=== PATIENT | female | born 1935 | race African-American/Black ===

== ENCOUNTER 2016-06-29 20:42 | Inpatient (IN) | payer MEDICARE ==
[~2016-06-29] VITALS: Ht 160 cm; Wt 83.2 kg
[~2016-06-29 20:42] MED LIST: ACET500T68 PO; ASCO10002 PO; ASPI81TA2 PO; FURO20TA3 PO; GARL1000 PO; GLUC-117 PO; HYDR-2666 PO; LEVO100T5 PO; LOSA50TA6 PO; MAGN400T3 PO; MULT-658 PO; MV-M1TAB7 PO; OMEG300C PO; POTA20TA12 PO; PRAV40TA2 PO; RIVA20TA2 PO; SPIR25TA3 PO; TRAM50TA PO
[2016-06-29 21:45] LABS: BASO % 0 % (0-3); EOS % 1 % (0-3); HEMATOCRIT 45.2 % (36.0-47.0); HEMOGLOBIN 14.6 g/dL (12.0-15.5); LYMPH # 0.8 x10^3/uL (1.0-4.8); LYMPH % 9 % (24-48); MEAN CORPUSCULAR HEMOGLOBIN 29 pg (25-35); MEAN CORPUSCULAR HGB CONC 32 g/dL (31-37); MEAN CORPUSCULAR VOLUME 88 fL (79-100); MONO % 5 % (0-9); NEUT % 85 % (31-73); PLATELET COUNT 160 x10^3/uL (140-400); RED BLOOD COUNT 5.12 x10^6/uL (3.50-5.40); RED CELL DISTRIBUTION WIDTH 14.3 % (11.5-14.5); WHITE BLOOD COUNT 9.2 x10^3/uL (4.0-11.0)
[2016-06-29] MEDS ORDERED: ONDANSETRON PF 4 MG/2 ML VIAL. IV ONE (21:45)
[2016-06-29] MEDS ORDERED: LABETALOL 20 MG/4 ML DISP.SYRIN. IVP ONE (21:45)
[2016-06-29 21:54] LABS: CALCIUM 9.3 mg/dL (8.5-10.1); CREATININE 0.6 mg/dL (0.6-1.0); GFR 116.1; POTASSIUM 3.9 mmol/L (3.5-5.1)
[2016-06-29 22:00] LABS: ALBUMIN 3.9 g/dL (3.4-5.0); TOTAL PROTEIN 7.8 g/dL (6.4-8.2)
--- NOTE | 2016-06-29 22:18 | RAD ---
PROCEDURE CT head without contrast. HISTORY Headache and hypertension. Dizziness. TECHNIQUE Noncontrast CT head was obtained. One or more of the following individualized dose reduction techniques were utilized for this exam: 1. Automated exposure control. 2. Adjustment of the mA and/or kV according to patient's size. 3. Use of iterative reconstruction technique. COMPARISON None. FINDINGS There is prominence of the ventricles and sulci. There is either a chronic small right frontal cortical infarct or volume averaging of a sulcus. There is no CT evidence of an acute infarct. Areas of decreased attenuation in the supratentorial white matter are nonspecific but most suggestive of mild small vessel ischemic disease. There is no intracranial hemorrhage or extra-axial fluid collection. There is hyperostosis frontalis. Paranasal sinuses and mastoid air cells are clear. IMPRESSION - Brain parenchymal volume loss and probable small vessel ischemic disease. - No CT evidence of an acute infarct. Electronically signed by: Gilbert Umaña MD (Jun 29, 2016 22:17:29)
--- NOTE | 2016-06-29 22:28 | PHYS DOC ---
Past Medical History Past Medical History: Arthritis, Arrhythmia, Diverticulitis, High Cholesterol, Hypertension, Hypothyroid Past Surgical History: Colectomy, Pacemaker, Other Additional Past Surgical Histo: cardiac cath with stents, cardioversion, colonoscopy, cardiac ablation Alcohol Use: Rarely Drug Use: None Adult General Chief Complaint Chief Complaint: HYPERTENSION HPI HPI Patient is a 80 year old female who presents with elevated blood pressure, dizziness. Patient reports starting this afternoon she had gradual onset of slight headache, this is accompanied by dizziness, which she describes as feeling foggy or lightheaded. No vertigo. She also reports some nausea. The symptoms slightly worse when she is standing up. In addition, she says that over the past 1-2 weeks she has had some intermittent problems with her speech ( trouble with speech flow in particular). Lastly, patient has complaint of intermittent labored breathing. Patient checked her blood pressure home and was elevated, 180/112. She has not taken anything for symptoms. She has been compliant with her blood pressure medications as She had not taken them tonight that she had not eaten. Review of Systems Review of Systems Constitutional: Denies fever or chills Eyes: Denies change in visual acuity or eye pain HENT: Denies nasal congestion or sore throat Respiratory: Denies cough or shortness of breath Cardiovascular: Denies chest pain GI: Nausea. Denies abdominal pain, vomiting, bloody stools or diarrhea : Denies dysuria or hematuria Musculoskeletal: Denies back pain or joint pain Integument: Denies rash or skin lesions Neurologic: Mild headache, "foggy", trouble with speech. Denies focal weakness or sensory changes Current Medications Current Medications Current Medications Medications (Trade) Dose Ordered Sig/Oren Start Time Stop Time Status Last Admin Dose Admin Acetaminophen (Tylenol) 650 mg 1X ONCE 06/29/16 23:00 06/29/16 23:01 DC 06/29/16 23:02 650 MG Furosemide (Lasix) 20 mg 1X ONCE 06/29/16 23:00 06/29/16 23:01 DC 06/29/16 23:00 20 MG Labetalol HCl (Normodyne) 20 mg 1X ONCE 06/29/16 21:45 06/29/16 21:46 DC 06/29/16 21:53 20 MG Ondansetron HCl (Zofran) 4 mg 1X ONCE 06/29/16 21:45 06/29/16 21:46 DC 06/29/16 21:52 4 MG Allergies Allergies Allergies Coded Allergies Type Severity Reaction Last Updated Verified lisinopril Allergy Intermediate rash 06/30/14 Yes Physical Exam Physical Exam Constitutional: Well developed, well nourished, no acute distress, non-toxic appearance HENT: Normocephalic, atraumatic, bilateral external ears normal Eyes: PERRL, EOMI, conjunctiva normal, no discharge Neck: Normal range of motion, no stridor Cardiovascular: Heart rate normal, regular rhythm, no murmur Lungs & Thorax: Bilateral breath sounds clear to auscultation Abdomen: Bowel sounds normal, soft, non-distended, no TTP Skin: Warm, dry, no erythema, no rash Extremities: No obvious deformity, no edema Neurologic: Alert and oriented X 3, GCS 15, CN II-XII grossly intact, fluent speech, strength intact and symmetrical throughout except for weakness in raising RLE from bed as compared to LLE, sensation to light touch intact throughout, no dystaxia on [id number] b/l Psychologic: Affect normal, judgement normal, mood normal Current Patient Data Vital Signs Vital Signs Date Time Temp Pulse Resp B/P Pulse Ox O2 Delivery O2 Flow Rate FiO2 06/29/16 21:53 73 208/103 06/29/16 20:59 97.4 20 97 Room Air 97.4 Lab Values Laboratory Tests Test 06/29/16 21:40 06/29/16 22:25 White Blood Count 9.2x10^3/uL (4.0-11.0) Red Blood Count 5.12x10^6/uL (3.50-5.40) Hemoglobin 14.6g/dL (12.0-15.5) Hematocrit 45.2% (36.0-47.0) Mean Corpuscular Volume 88fL (79-100) Mean Corpuscular Hemoglobin 29pg (25-35) Mean Corpuscular Hemoglobin Concent 32g/dL (31-37) Red Cell Distribution Width 14.3% (11.5-14.5) Platelet Count 160x10^3/uL (140-400) Neutrophils (%) (Auto) 85% (31-73) H Lymphocytes (%) (Auto) 9% (24-48) L Monocytes (%) (Auto) 5% (0-9) Eosinophils (%) (Auto) 1% (0-3) Basophils (%) (Auto) 0% (0-3) Neutrophils # (Auto) 7.8x10^3uL (1.8-7.7) H Lymphocytes # (Auto) 0.8x10^3/uL (1.0-4.8) L Monocytes # (Auto) 0.5x10^3/uL (0.0-1.1) Eosinophils # (Auto) 0.0x10^3/uL (0.0-0.7) Basophils # (Auto) 0.0x10^3/uL (0.0-0.2) Sodium Level 140mmol/L (136-145) Potassium Level 3.9mmol/L (3.5-5.1) Chloride Level 101mmol/L (98-107) Carbon Dioxide Level 31mmol/L (21-32) Anion Gap 8 (6-14) Blood Urea Nitrogen 16mg/dL (7-20) Creatinine 0.6mg/dL (0.6-1.0) Estimated GFR (Cockcroft-Gault) 116.1 BUN/Creatinine Ratio 27 (6-20) H Glucose Level 100mg/dL (70-99) H Calcium Level 9.3mg/dL (8.5-10.1) Total Bilirubin 1.0mg/dL (0.2-1.0) Aspartate Amino Transferase (AST) 29U/L (15-37) Alanine Aminotransferase (ALT) 38U/L (14-59) Alkaline Phosphatase 101U/L (46-116) Troponin I Quantitative < 0.017ng/mL (0.000-0.055) MH-Fve-T-Type Natriuretic Peptide 1213pg/mL (0-449) H Total Protein 7.8g/dL (6.4-8.2) Albumin 3.9g/dL (3.4-5.0) Albumin/Globulin Ratio 1.0 (1.0-1.7) Urine Collection Type Unknown Urine Color Yellow Urine Clarity Clear Urine pH 6.5 Urine Specific [place] <=1.005 Urine Protein Negativemg/dL (NEG-TRACE) Urine Glucose (UA) Negativemg/dL (NEG) Urine Ketones (Stick) Negativemg/dL (NEG) Urine Blood Trace (NEG) Urine Nitrite Negative (NEG) Urine Bilirubin Negative (NEG) Urine Urobilinogen Dipstick 0.2mg/dL (0.2 mg/dL) Urine Leukocyte Esterase Negative (NEG) Urine RBC Occ/HPF (0-2) Urine WBC 0/HPF (0-4) Urine Squamous Epithelial Cells Few/LPF Urine Bacteria 0/HPF (0-FEW) Laboratory Tests 06/29/16 21:40 Laboratory Tests 06/29/16 21:40 EKG EKG EKG (my read): atrial fibrillation (paced), rate 75, IVCD, single PVC noted, nonspecific ST changes Radiology/Procedures Radiology/Procedures CT head: IMPRESSION - Brain parenchymal volume loss and probable small vessel ischemic disease. - No CT evidence of an acute infarct. CXR (my read): No significant change from prior Course & Med Decision Making Course & Med Decision Making Pertinent Labs and Imaging studies reviewed. (See chart for details) Patient is 80 year old female who presents with BHATTI, dizziness, elevated BP. Concern for possibility of stroke/TIA given recent speech problems (none noted at this time) and RLE weakness. Outside tPA window. Will check EKG, CT head, CXR , labs to evaluate. Dose of labetalol and zofran ordered. EKG and imaging results as above. Labs largely unremarkable except for elevated BNP. Discussed results with patient and daughter. Dose of lasix and acetaminophen given. Discussed with Dr. Del Real, will admit under her care for further evaluation and treatment. Dragon Disclaimer Dragon Disclaimer This electronic medical record was generated, in whole or in part, using a voice recognition dictation system. Departure Departure Impression: Primary Impression: Headache Additional Impressions: Weakness of right lower extremity Speech problem Disposition: ADMITTED INPATIENT Admitting Physician: Grazyna Del Real Condition: STABLE Referrals: GINA PAEZ MD (PCP) Problem Qualifiers DENYS REDDING MD Jun 29, 2016 22:28
[2016-06-29 22:38] LABS: BILIRUBIN,URINE NEGATIVE (NEG); GLUCOSE,URINE NEGATIVE (NEG); NITRITE,URINE NEGATIVE (NEG); PH,URINE 6.5; PROTEIN,URINE NEGATIVE (NEG-TRACE); UROBILINOGEN,URINE 0.2 mg/dL (0.2 mg/dL)
[2016-06-29 22:39] LABS: BACTERIA,URINE 0 /HPF (0-FEW); RBC,URINE OCC /HPF (0-2); SQUAMOUS EPITHELIAL CELL,UR FEW /LPF; WBC,URINE 0 /HPF (0-4)
[2016-06-29] MEDS ORDERED: ACETAMINOPHEN 325 MG TABLET. PO ONE (23:00)
[2016-06-29] MEDS ORDERED: FUROSEMIDE 20 MG/2 ML VIAL IVP ONE (23:00)
[2016-06-29] MEDS ORDERED: MORPHINE SULFATE 2 MG/ML DISP.SYRIN. IV PRN (23:15)
[2016-06-29] MEDS ORDERED: ACETAMINOPHEN 325 MG TABLET. PO PRN (23:15)
[2016-06-29] MEDS ORDERED: ONDANSETRON PF 4 MG/2 ML VIAL. IV PRN (23:15)
--- NOTE | 2016-06-29 23:48 | ACF ---
Admission Forms Criteria HEADACHES Clinical Indications for Admission to Inpatient Care (Place 'X' for any and all applicable criteria): Admission is indicated for ANY ONE of the following(1)(2)(3)(4): [X]I. Inpatient admission required rather than observational care (Also use Headaches: Observation Care as appropriate) because of ANY ONE of the following: [ ]a) Severe pain requiring acute inpatient management [ ]b) Altered mental status that is severe or persistent [ ]c) Vomiting or dehydration that is severe or persistent [ ]d) New-onset focal neurologic deficit that is severe or persistent [X]e) Hypertension requiring inpatient treatment [ ]f) Severe (new) neurologic findings requiring inpatient care as indicated by ANY ONE of following(9)(10): [ ]1) Papilledema [ ]2) Cerebral edema [ ]3) Mass effect on CT scan [ ]4) Cerebral bleeding, ischemia, or vasospasm(16) [ ]5) Hydrocephalus(17) [ ]6) Uncontrolled seizures [ ]g) IV infusion of anticoagulation, platelet inhibitors vasoactive, or antiarrhythmic medication. [ ]h) Cerebral bleeding, hydrocephalus, or vasospasm monitoring (16) [ ]i) Increased intracranial pressure or cerebral edema monitoring (17) [ ]j) Other condition, treatment or monitoring requiring inpatient admission [ ]II. Unruptured but threatening aneurysm or vascular malformation [ ]III. Venous sinus thrombosis [ ]IV. Increased intracranial pressure [ ]V. Cerebral spinal fluid leak with decreased intracranial pressure [ ]. Medication-overuse headache that has failed all outpatient management options [ ]VII. Vasculitis (eg, giant cell (temporal) arteritis, central nervous system vasculitis) requiring IV corticosteroids, IV antithrombotic therapy, or inpatient monitoring (eg, visual symptoms or findings, other ischemic manifestations)[A](10)(11) Extended stay beyond goal length of stay may be needed for (27): [ ]a) Intractable migraine [ ]b) Subarachnoid or intracranial hemorrhage [ ]c) Malignant hypertension [ ]d) Detoxification from drug withdrawal in medication-overuse headache (29) The original [facility] includes the [facility] content created by Robyn Mcfarlane has been revised. The portions of the content which have been revised are identified through the use of italic text or in bold, and Robyn Mcfarlane has neither reviewed nor approved the modified material.All other unmodified content is copyright [facility]. Please see references footnoted in the original [facility] edition 2016 Admission Criteria Met?: Yes [place]. Jun 29, 2016 23:48
[2016-06-30] VITALS (7 sets, daily range): BP systolic 130–173; BP diastolic 62–96
[2016-06-30 00:49] LABS: INR 1.3 (0.8-1.1); PROTHROMBIN TIME PATIENT 15.3 SEC (11.7-14.0)
--- NOTE | 2016-06-30 06:52 | EKG ---
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
--- NOTE | 2016-06-30 07:39 | RAD ---
Indication hypertension. Shortness of breath. A single view of the chest was obtained. Comparison is made to an examination 02/27/2016. There is unchanged cardiomegaly. There is no gross congestive heart failure. No consolidated pneumonia is seen. There is no pleural fluid or pneumothorax. Bipolar cardiac pacing device is noted. A significant change compared to the prior study is not seen. IMPRESSION: Unchanged cardiomegaly. No acute or focal process seen
--- NOTE | 2016-06-30 10:25 | PDOC2 ---
STANLEY LOPEZ MACHINE SHORTHAND REPORTER 06/30/16 1025: CARDIAC CONSULT DATE OF CONSULT Date of Consult DATE: 06/30/16 TIME: 10:22 REASON FOR CONSULT Reason for Consult: elevated BNP REFERRING PHYSICIAN Referring Physician: Dr. Martin [place] SOURCE Source: Chart review, Patient HISTORY OF PRESENT ILLNESS HISTORY OF PRESENT ILLNESS 81 year old female who presented to ER with headache and elevated BP. Reports BP was > 200 yesterday morning and usually does not take furosemide when leaving the house due to urinary urgency. SBP > 200 POA with malignant HTN. Also admits to not taking usual antihypertensive medications and dietary indiscretion. BP controlled after meds and headache resolved after morphine.Troponin level not consistent with AMI. NT-proBNP 1213. CXR without CHF. EKG with underlying atrial fibrillation and V-pacing. Reason for Visit: malignant HTN PAST MEDICAL HISTORY Cardiovascular: AFIB (permanent; also atrial flutter; previous MAGDALENO thrombus; with OAC), CAD (PCI/UBALDO to unknown target), HTN, Hyperlipidemia, Other (AV node ablation; SSS with Biotronik EVIA dual chamber - 2012 (not MRI compatible); cardiomyopathy with LVEF of 40-45%) Pulmonary: No pertinent hx GI: Diverticulosis Heme/Onc: No pertinent hx Hepatobiliary: No pertinent hx Psych: No pertinent hx Musculoskeletal: Osteoarthritis Rheumatologic: No pertinent hx Infectious disease: No pertinent hx ENT: No pertinent hx Endocrine: Hypothyroidism PAST SURGICAL HISTORY Past Surgical History: Pacemaker (Biotronik EVIA - not MRI compatible), Colectomy FAMILY HISTORY Family History: Hypertension SOCIAL HISTORY Smoke: No ALCOHOL: none Drugs: None CURRENT MEDICATIONS CURRENT MEDICATIONS Current Medications Medications (Trade) Dose Ordered Sig/Oren Route PRN Reason Start Time Stop Time Status Last Admin Dose Admin Ondansetron HCl (Zofran) 4 mg 1X ONCE IV 06/29/16 21:45 06/29/16 21:46 DC 06/29/16 21:52 Labetalol HCl (Normodyne) 20 mg 1X ONCE IVP 06/29/16 21:45 06/29/16 21:46 DC 06/29/16 21:53 Furosemide (Lasix) 20 mg 1X ONCE IVP 06/29/16 23:00 06/29/16 23:01 DC 06/29/16 23:00 Acetaminophen (Tylenol) 650 mg 1X ONCE PO 06/29/16 23:00 06/29/16 23:01 DC 06/29/16 23:02 Morphine Sulfate 2 mg PRN Q2HR PRN IV PAIN 06/29/16 23:15 06/30/16 23:14 06/30/16 04:06 Acetaminophen (Tylenol) 650 mg PRN Q4HRS PRN PO FEVER 06/29/16 23:15 06/30/16 23:14 06/30/16 03:35 ALLERGIES ALLERGIES: Coded Allergies: lisinopril (Verified Allergy, Intermediate, rash, 06/30/14) ROS General: No: Appetite, Chills, Fatigue, Malaise, Night Sweats, Other PSYCHOLOGICAL ROS: No: Anxiety, Behavioral Disorder, Concentration difficultie , Decreased libido, Depression, Disorientation, Hallucinations, Hostility, Irritablity, Memory difficulties, Mood Swings, Obsessive thoughts, Other, Physical abuse, Sexual abuse, Sleep disturbances, Suicidal ideation Eyes: No Blurry vision, No Decreased vision, No Double vision, No Dry eyes, No Excessive tearing, No Eye Pain, No Itchy Eyes, No Loss of vision, No Other, No Photophobia, No Scotomata, No Uses contacts, No Uses glasses HEENT: YES: Heacaches, No: Epistaxis, Hearing change, Nasal congestion, Nasal discharge, Oral lesions, Other, Sinus pain, Sneezing, Snoring, Sore Throat, Tinnitus, Vertigo, Visual Changes, Vocal changes ALLERGY AND IMMUNOLOGY: No: Hives, Insect Bite Sensitivity, Itchy/Watery Eyes, Nasal Congestion, Other, Post Nasal Drip, Seasonal Allergies Hematological and Lymphatic: No: Bleeding Problems, Blood Clots, Blood Transfusions, Brusing, Night Sweats, Other, Pallor, Swollen Lymph Nodes ENDOCRINE: No: Breast Changes, Galactorrhea, Hair Pattern Changes, Hot Flashes , Malaise/lethargy, Mood Swings, Other, Palpitations, Polydipsia/polyuria, Skin Changes, Temperature Intolerance, Unexpected Weight Changes Respiratory: No: Cough, Hemoptysis, Orthopnea, Other, Pleuritic Pain, SOB with excertion, Shortness of breath, Sputum Changes, Stridor, Tachypnea, Wheezing Cardiovascular: yes Edema, No Chest Pain, No Lt Headedness, No Orthopnea, No Other, No Palpitations, No Paroxysmal Noc. Dyspnea Gastrointestinal: Yes Nausea Genitourinary: YES , YES Urgency, No Discharge, No Dysuria, No Flank Pain, No Frequency, No Hematuria, No Incontinence, No Other, No Pain, No Retention Musculoskeletal: No Gait Disturbance, No Joint Pain, No Joint Stiffness, No Joint Swelling, No Muscle Pain, No Muscular Weakness, No Other, No Pain In:, No Swelling In: Neurological: Yes Dizziness Skin: No Acne, No Dry Skin, No Eczema, No Hair Changes, No Lumps, No Mole Changes, No Mottling, No Nail Changes, No Other, No Pruritus, No Rash, No Skin Lesion Changes PHYSICAL EXAM General: Alert, Oriented X3, Cooperative, No acute distress HEENT: Atraumatic, PERRLA Lungs: Clear to auscultation, Normal air movement Heart: Normal S1, Normal S2, Other (IRRR; no carotid bruits; tele: atrial fib with V-pacing) Abdomen: Soft, No tenderness Extremities: Other (1+ ankle edema) Neuro: Normal speech Psych/Mental Status: Mental status NL, Mood NL MUSCULOSKELETAL: Osteoarthritic changes both hands VITALS VITALS Vital Signs Date Time Temp Pulse Resp B/P Pulse Ox O2 Delivery O2 Flow Rate FiO2 06/30/16 07:15 97.7 68 17 130/70 94 Room Air 97.7 LABS Lab: Laboratory Tests Test 06/29/16 21:40 06/29/16 22:25 White Blood Count 9.2x10^3/uL (4.0-11.0) Red Blood Count 5.12x10^6/uL (3.50-5.40) Hemoglobin 14.6g/dL (12.0-15.5) Hematocrit 45.2% (36.0-47.0) Mean Corpuscular Volume 88fL (79-100) Mean Corpuscular Hemoglobin 29pg (25-35) Mean Corpuscular Hemoglobin Concent 32g/dL (31-37) Red Cell Distribution Width 14.3% (11.5-14.5) Platelet Count 160x10^3/uL (140-400) Neutrophils (%) (Auto) 85% (31-73) Lymphocytes (%) (Auto) 9% (24-48) Monocytes (%) (Auto) 5% (0-9) Eosinophils (%) (Auto) 1% (0-3) Basophils (%) (Auto) 0% (0-3) Neutrophils # (Auto) 7.8x10^3uL (1.8-7.7) Lymphocytes # (Auto) 0.8x10^3/uL (1.0-4.8) Monocytes # (Auto) 0.5x10^3/uL (0.0-1.1) Eosinophils # (Auto) 0.0x10^3/uL (0.0-0.7) Basophils # (Auto) 0.0x10^3/uL (0.0-0.2) Prothrombin Time 15.3SEC (11.7-14.0) Prothromb Time International Ratio 1.3 (0.8-1.1) Activated Partial Thromboplast Time 30SEC (24-38) Sodium Level 140mmol/L (136-145) Potassium Level 3.9mmol/L (3.5-5.1) Chloride Level 101mmol/L (98-107) Carbon Dioxide Level 31mmol/L (21-32) Anion Gap 8 (6-14) Blood Urea Nitrogen 16mg/dL (7-20) Creatinine 0.6mg/dL (0.6-1.0) Estimated GFR (Cockcroft-Gault) 116.1 BUN/Creatinine Ratio 27 (6-20) Glucose Level 100mg/dL (70-99) Calcium Level 9.3mg/dL (8.5-10.1) Total Bilirubin 1.0mg/dL (0.2-1.0) Aspartate Amino Transf (AST/SGOT) 29U/L (15-37) Alanine Aminotransferase (ALT/SGPT) 38U/L (14-59) Alkaline Phosphatase 101U/L (46-116) Troponin I Quantitative < 0.017ng/mL (0.000-0.055) FK-Slz-A-Type Natriuretic Peptide 1213pg/mL (0-449) Total Protein 7.8g/dL (6.4-8.2) Albumin 3.9g/dL (3.4-5.0) Albumin/Globulin Ratio 1.0 (1.0-1.7) Urine Collection Type Unknown Urine Color Yellow Urine Clarity Clear Urine pH 6.5 Urine Specific [place] <=1.005 Urine Protein Negativemg/dL (NEG-TRACE) Urine Glucose (UA) Negativemg/dL (NEG) Urine Ketones (Stick) Negativemg/dL (NEG) Urine Blood Trace (NEG) Urine Nitrite Negative (NEG) Urine Bilirubin Negative (NEG) Urine Urobilinogen Dipstick 0.2mg/dL (0.2 mg/dL) Urine Leukocyte Esterase Negative (NEG) Urine RBC Occ/HPF (0-2) Urine WBC 0/HPF (0-4) Urine Squamous Epithelial Cells Few/LPF Urine Bacteria 0/HPF (0-FEW) IMAGES IMAGES CXR: There is unchanged cardiomegaly. There is no gross congestive heart failure. No consolidated pneumonia is seen. There is no pleural fluid or pneumothorax. Bipolar cardiac pacing device is noted. A significant change compared to the prior study is not seen. IMPRESSION: Unchanged cardiomegaly. No acute or focal process seen EKG EKG atrial fib, V-paced; no acute changes; rare PVC ECHOCARDIOGRAM ECHOCARDIOGRAM 03/22/2016: TTE: Left ventricle systolic function is mildly reduced. EF 40-45%. Mild global hypokinesis with septal motion suggestive of pacing. There is a pacemaker lead seen in the RV/RA. The left atrium is moderately dilated with bowing of the atrial septum suggestive of elevated left sided filling pressures. Doppler and Color Flow revealed mild mitral regurgitation. Doppler and Color Flow revealed mild to moderate tricuspid regurgitation. The PA pressure was estimated at 48 mmHg. STRESS TEST STRESS TEST 02/2015: Regadenoson MPI: 1. Regadenoson cardioisotope stress test did not show any evidence of ischemia or infarct. 2. Normal left ventricular systolic function with ejection fraction calculated at 71%. 3. Low risk for cardiac events. ASSESSMENT/PLAN ASSESSMENT/PLAN 1. malignant HTN admits to missed doses of medications & dietary indiscretions resume home meds have discussed need to consistently take meds 2. headaches per primary and Neuro PPM is NOT MRI COMPATIBLE/CONDITIONAL 3. permanent atrial fibrillation rate controlled without medications continue OAC with Xarelto for stroke prevention 4. SSS with previous AV node ablation Biotronik dual chamber PPM interrogated 05/2016 without significant findings continue usual interrogation schedule 5. CAD with history of PCI/UBALDO no anginal symptoms associated with HTN 6. cardiomyopathy, presumed ischemic depressed LVEF of 40-45% on TTE 03/2016 continue diuretics, aldosterone agonist and ARB would consider adding beta-deborah if BP remains elevated 7. HLD continue statin therapy Problems: PASNOORI,MELISSA R MD 07/01/16 0712: CARDIAC CONSULT ALLERGIES ALLERGIES: Coded Allergies: lisinopril (Verified Allergy, Intermediate, rash, 06/30/14) ASSESSMENT/PLAN ASSESSMENT/PLAN Patient seen and examined 06/30/16. Agree with HEARING AIDE TECHNICIAN's assessment and plan. Accelerated hypertension secondary to noncompliance. Resume home medications and titrate for better blood pressure control. Chronic systolic heart failure well compensated. CAD status stable. Permanent atrial fibrillation rate controlled. Thank you for the consultation. Problems: STANLEY LOPEZ APRN Jun 30, 2016 10:25 MELISSA LOFTON MD Jul 01, 2016 07:12
[2016-06-30] MEDS ORDERED: ACETAMINOPHEN 500 MG TABLET PO PRN (10:45)
[2016-06-30] MEDS ORDERED: HYDROCODONE/APAP 5/325MG TABLET. PO PRN (10:45)
[2016-06-30] MEDS ORDERED: LEVOTHYROXINE 100 MCG TABLET PO PRN (10:45)
[2016-06-30] MEDS ORDERED: ONDANSETRON PF 4 MG/2 ML VIAL. IV PRN (11:00)
[2016-06-30] MEDS ORDERED: hydrALAZINE 20 MG/ML VIAL. IVP PRN (11:00)
[2016-06-30] MEDS ORDERED: ANTI-COAG MONITOR BY PHARMACY. MC PRN (11:15)
--- NOTE | 2016-06-30 12:05 | PDOC2 ---
NEUROLOGY CONSULT Date of Admission Date of Admission DATE: 06/30/16 TIME: 11:58 Reason for Consult Reason for Consult: Difficulty speaking Referring Physician Referring Physician: Dr. Del Real PCP: Dr. Choe Source Source: Chart review, Patient History of Present Illness History of Present Illness The patient is an 81-year-old right-handed female admitted for headache and found to have hypertension. She complains that for the past several months she has had some difficulty speaking. She realizes that her blood pressure may have been writhing a high during this time. There is no history of stroke, seizure, head injury, inciting or mitigating features. She is feeling better today. Past Medical History Cardiovascular: AFIB (/flutter), CAD, CHF, HTN, Hyperlipidemia Pulmonary: Other (sleep apnea) GI: Diverticulosis Psych: Psychosis Musculoskeletal: Osteoarthritis Endocrine: Hypothyroidism Past Surgical History Past Surgical History: Pacemaker, Colectomy, Other (AV node ablation) Family History Family History: No pertinent hx Social History Social History , nonsmoker, nondrinker, lives on her own Current Medications Current Medications Current Medications Ondansetron HCl (Zofran) 4 mg 1X ONCE IV Last administered on 06/29/16 21:52 ; Start 06/29/16 at 21:45; Stop 06/29/16 at 21:46; Status DC Labetalol HCl (Normodyne) 20 mg 1X ONCE IVP Last administered on 06/29/16 21: 53; Start 06/29/16 at 21:45; Stop 06/29/16 at 21:46; Status DC Furosemide (Lasix) 20 mg 1X ONCE IVP Last administered on 06/29/16 23:00; Start 06/29/16 at 23:00; Stop 06/29/16 at 23:01; Status DC Acetaminophen (Tylenol) 650 mg 1X ONCE PO Last administered on 06/29/16 23:02 ; Start 06/29/16 at 23:00; Stop 06/29/16 at 23:01; Status DC Ondansetron HCl (Zofran) 4 mg PRN Q8HRS PRN IV NAUSEA/VOMITING; Start 06/29/16 at 23:15; Stop 06/30/16 at 23:14 Morphine Sulfate 2 mg PRN Q2HR PRN IV PAIN Last administered on 06/30/16 04:06 ; Start 06/29/16 at 23:15; Stop 06/30/16 at 23:14 Acetaminophen (Tylenol) 650 mg PRN Q4HRS PRN PO FEVER Last administered on 06/30t 03:35; Start 06/29/16 at 23:15; Stop 06/30/16 at 23:14 Acetaminophen (Tylenol) 650 mg PRN Q6HRS PRN PO PAIN; Start 06/30/16 at 10:45 Aspirin (Children'S Aspirin) 81 mg DAILY PO ; Start 06/30/16 at 11:00 Furosemide (Lasix) 20 mg DAILY PO ; Start 06/30/16 at 11:00 Acetaminophen/ Hydrocodone Bitart (Lortab 5/325) 1 tab PRN Q6HRS PRN PO PAIN; Start 06/30/16 at 10:45 Levothyroxine Sodium (Synthroid) 100 mcg QODAY PRN PO SEE COMMENTS; Start 06/30 at 10:45 Losartan Potassium (Cozaar) 25 mg QHS PO ; Start 06/30/16 at 21:00 Magnesium Oxide (Magnesium Oxide) 400 mg DAILY PO ; Start 06/30/16 at 11:00 Potassium Chloride (Klor-Con) 20 meq DAILY PO ; Start 06/30/16 at 11:00 Spironolactone (Aldactone) 25 mg DAILY PO ; Start 06/30/16 at 11:00 Tramadol HCl (Ultram) 50 mg PRN Q6HRS PRN PO PAIN; Start 06/30/16 at 10:45 Ascorbic Acid (Vitamin C) 1,000 mg DAILY PO ; Start 06/30/16 at 11:00 Non-Formulary Medication 1 each DAILY PO ; Start 07/01/16 at 09:00; Stop at 09:00; Status DC Multivitamins (Thera M Plus) 1 tab DAILY PO ; Start 06/30/16 at 11:00 Vitamin D (Vitamin D3) 1,000 unit DAILY PO ; Start 06/30/16 at 11:00 Fish Oil (Fish Oil) 1,000 mg DAILY PO ; Start 06/30/16 at 11:00 Non-Formulary Medication 1 tab QHS PO ; Start 06/30/16 at 21:00; Stop 06/30/16 at 21:00; Status DC Rivaroxaban (Xarelto) 20 mg DAILYWSUP PO ; Start 06/30/16 at 17:00 Ondansetron HCl (Zofran) 4 mg PRN Q6HRS PRN IV NAUSEA/VOMITING; Start 06/30/16 at 11:00 Hydralazine HCl (Apresoline) 10 mg PRN Q4HRS PRN IVP ELEVATED BP, SEE COMMENTS ; Start 06/30/16 at 11:00 Info (Anti-Coagulation Monitoring By Pharmacy) 1 each PRN DAILY PRN MC SEE COMMENTS; Start 06/30/16 at 11:15 Atorvastatin Calcium (Lipitor) 10 mg QHS PO ; Start 06/30/16 at 21:00 Active Scripts Active Hydrocodone-Apap 5-325 (Hydrocodone Bit/Acetaminophen) 1 Each Tablet 1 Tab PO PRN Q6HRS PRN Reported Magnesium Oxide 400 Mg Tablet 1 Tab PO DAILY Acetaminophen 500 Mg Tablet 2 Tab PO PRN PRN Losartan Potassium 50 Mg Tablet 0.5 PO QHS Pravastatin Sodium 40 Mg Tablet 1 Tab PO QHS Xarelto (Rivaroxaban) 20 Mg Tablet 20 Mg PO DAILYWSUP Fish Oil ([place]-3 Fatty Acids) 300 Mg Capsule 300 Mg PO DAILY Cosamin Ds Capsule (Glucosam/Chondroit/C/Manganese) 1 Each Capsule 1 Each PO DAILY Vitamin C (Ascorbic Acid) 1,000 Mg Tablet 1,000 Mg PO DAILY Vitamin D3 Complete Caplet (Mv-Mn/Iron/Fa/Herbal Cmplx#190) 1 Each Tablet 1 Each PO DAILY Centrum Silver Tablet (Multivits-Min/Fa/Lycopene/Lut) 1 Each Tablet 1 Each PO DAILY Aspirin 81 Mg Tab.chew 1 Tab PO DAILY Tramadol Hcl 50 Mg Tablet 2 Tab PO PRN PRN Levothyroxine Sodium 100 Mcg Tablet 1 Tab PO QODAY PRN Potassium Chloride 20 Meq Tab.er.prt 1 Tab PO DAILY Furosemide 20 Mg Tablet 1 Tab PO DAILY Spironolactone 25 Mg Tablet 1 Tab PO DAILY Allergies Allergies: Coded Allergies: lisinopril (Verified Allergy, Intermediate, rash, 06/30/14) ROS Review of System Patient denies fevers, chills, weight loss, dyspnea, angina, abdominal pain, change in bowels, or dysuria. 14 point review of systems is negative. Physical Exam Physical Examination PHYSICAL EXAMINATION: Vital signs: see above. General appearance is normal and in no acute distress. HEENT: Normocephalic and nontraumatic. Eyes, nose, ears, and throat are unremarkable. Neck is supple. No lymphadenopathy. No bruits are heard over the carotid artery. No crepitus. NEUROLOGICAL EXAMINATION: Mental Status Examination: Alert. Oriented to time, place, and person. Answers questions and follows commends. There is no dysnomia. Once or twice she hesitates with word finding, but not outside of normal limits but she certainly notices when she has the problem. Pupils are equal round and reactive to light and accommodation. Extraocular movements are intact. Visual field exam shows no defect on the direct confrontation. No motor or sensory deficits on the facial exam. Uvula in the midline and the soft palate elevated symmetrically. No deviation of the tongue to any direction. Gross hearing is normal. Shoulder shrug normal. Muscle tone is normal. Muscle strength is 5. Deep tendon reflexes are 2+ all around. Plantar reflex is with flexion response bilaterally. Wjxkes-lv-zznu test performance is accurate. Tandem walk test is accurate. Alternative movements are accurate. Romberg test is negative. Gait is normal. Sensory exam shows no deficits. No cerebellar signs are elicited. Vitals VITALS Vital Signs Date Time Temp Pulse Resp B/P Pulse Ox O2 Delivery O2 Flow Rate FiO2 06/30/16 10:57 97.7 66 17 149/62 95 Room Air 97.7 Labs Labs Laboratory Tests Test 06/29/16 21:40 06/29/16 22:25 White Blood Count 9.2x10^3/uL (4.0-11.0) Red Blood Count 5.12x10^6/uL (3.50-5.40) Hemoglobin 14.6g/dL (12.0-15.5) Hematocrit 45.2% (36.0-47.0) Mean Corpuscular Volume 88fL (79-100) Mean Corpuscular Hemoglobin 29pg (25-35) Mean Corpuscular Hemoglobin Concent 32g/dL (31-37) Red Cell Distribution Width 14.3% (11.5-14.5) Platelet Count 160x10^3/uL (140-400) Neutrophils (%) (Auto) 85% (31-73) Lymphocytes (%) (Auto) 9% (24-48) Monocytes (%) (Auto) 5% (0-9) Eosinophils (%) (Auto) 1% (0-3) Basophils (%) (Auto) 0% (0-3) Neutrophils # (Auto) 7.8x10^3uL (1.8-7.7) Lymphocytes # (Auto) 0.8x10^3/uL (1.0-4.8) Monocytes # (Auto) 0.5x10^3/uL (0.0-1.1) Eosinophils # (Auto) 0.0x10^3/uL (0.0-0.7) Basophils # (Auto) 0.0x10^3/uL (0.0-0.2) Prothrombin Time 15.3SEC (11.7-14.0) Prothromb Time International Ratio 1.3 (0.8-1.1) Activated Partial Thromboplast Time 30SEC (24-38) Sodium Level 140mmol/L (136-145) Potassium Level 3.9mmol/L (3.5-5.1) Chloride Level 101mmol/L (98-107) Carbon Dioxide Level 31mmol/L (21-32) Anion Gap 8 (6-14) Blood Urea Nitrogen 16mg/dL (7-20) Creatinine 0.6mg/dL (0.6-1.0) Estimated GFR (Cockcroft-Gault) 116.1 BUN/Creatinine Ratio 27 (6-20) Glucose Level 100mg/dL (70-99) Calcium Level 9.3mg/dL (8.5-10.1) Total Bilirubin 1.0mg/dL (0.2-1.0) Aspartate Amino Transf (AST/SGOT) 29U/L (15-37) Alanine Aminotransferase (ALT/SGPT) 38U/L (14-59) Alkaline Phosphatase 101U/L (46-116) Troponin I Quantitative < 0.017ng/mL (0.000-0.055) YQ-Mhi-U-Type Natriuretic Peptide 1213pg/mL (0-449) Total Protein 7.8g/dL (6.4-8.2) Albumin 3.9g/dL (3.4-5.0) Albumin/Globulin Ratio 1.0 (1.0-1.7) Urine Collection Type Unknown Urine Color Yellow Urine Clarity Clear Urine pH 6.5 Urine Specific [place] <=1.005 Urine Protein Negativemg/dL (NEG-TRACE) Urine Glucose (UA) Negativemg/dL (NEG) Urine Ketones (Stick) Negativemg/dL (NEG) Urine Blood Trace (NEG) Urine Nitrite Negative (NEG) Urine Bilirubin Negative (NEG) Urine Urobilinogen Dipstick 0.2mg/dL (0.2 mg/dL) Urine Leukocyte Esterase Negative (NEG) Urine RBC Occ/HPF (0-2) Urine WBC 0/HPF (0-4) Urine Squamous Epithelial Cells Few/LPF Urine Bacteria 0/HPF (0-FEW) Laboratory Tests Test 06/29/16 21:40 06/29/16 22:25 White Blood Count 9.2x10^3/uL (4.0-11.0) Red Blood Count 5.12x10^6/uL (3.50-5.40) Hemoglobin 14.6g/dL (12.0-15.5) Hematocrit 45.2% (36.0-47.0) Mean Corpuscular Volume 88fL (79-100) Mean Corpuscular Hemoglobin 29pg (25-35) Mean Corpuscular Hemoglobin Concent 32g/dL (31-37) Red Cell Distribution Width 14.3% (11.5-14.5) Platelet Count 160x10^3/uL (140-400) Neutrophils (%) (Auto) 85% (31-73) Lymphocytes (%) (Auto) 9% (24-48) Monocytes (%) (Auto) 5% (0-9) Eosinophils (%) (Auto) 1% (0-3) Basophils (%) (Auto) 0% (0-3) Neutrophils # (Auto) 7.8x10^3uL (1.8-7.7) Lymphocytes # (Auto) 0.8x10^3/uL (1.0-4.8) Monocytes # (Auto) 0.5x10^3/uL (0.0-1.1) Eosinophils # (Auto) 0.0x10^3/uL (0.0-0.7) Basophils # (Auto) 0.0x10^3/uL (0.0-0.2) Prothrombin Time 15.3SEC (11.7-14.0) Prothromb Time International Ratio 1.3 (0.8-1.1) Activated Partial Thromboplast Time 30SEC (24-38) Sodium Level 140mmol/L (136-145) Potassium Level 3.9mmol/L (3.5-5.1) Chloride Level 101mmol/L (98-107) Carbon Dioxide Level 31mmol/L (21-32) Anion Gap 8 (6-14) Blood Urea Nitrogen 16mg/dL (7-20) Creatinine 0.6mg/dL (0.6-1.0) Estimated GFR (Cockcroft-Gault) 116.1 BUN/Creatinine Ratio 27 (6-20) Glucose Level 100mg/dL (70-99) Calcium Level 9.3mg/dL (8.5-10.1) Total Bilirubin 1.0mg/dL (0.2-1.0) Aspartate Amino Transf (AST/SGOT) 29U/L (15-37) Alanine Aminotransferase (ALT/SGPT) 38U/L (14-59) Alkaline Phosphatase 101U/L (46-116) Troponin I Quantitative < 0.017ng/mL (0.000-0.055) WJ-Nhs-M-Type Natriuretic Peptide 1213pg/mL (0-449) Total Protein 7.8g/dL (6.4-8.2) Albumin 3.9g/dL (3.4-5.0) Albumin/Globulin Ratio 1.0 (1.0-1.7) Urine Collection Type Unknown Urine Color Yellow Urine Clarity Clear Urine pH 6.5 Urine Specific [place] <=1.005 Urine Protein Negativemg/dL (NEG-TRACE) Urine Glucose (UA) Negativemg/dL (NEG) Urine Ketones (Stick) Negativemg/dL (NEG) Urine Blood Trace (NEG) Urine Nitrite Negative (NEG) Urine Bilirubin Negative (NEG) Urine Urobilinogen Dipstick 0.2mg/dL (0.2 mg/dL) Urine Leukocyte Esterase Negative (NEG) Urine RBC Occ/HPF (0-2) Urine WBC 0/HPF (0-4) Urine Squamous Epithelial Cells Few/LPF Urine Bacteria 0/HPF (0-FEW) Images Images CT head: IMPRESSION - Brain parenchymal volume loss and probable small vessel ischemic disease. - No CT evidence of an acute infarct. Assessment/Plan Assessment/Plan Impression: Patient complains of language difficulties, she really is within normal limits on my bedside exam. 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 There is no evidence of dementia, particularly frontotemporal dementia Recommendations: She cannot have an MRI because of pacemaker Speech therapy evaluation Okay to treat blood pressure aggressively as there is no sign of stroke Aim for discharge when blood pressure is stable Follow-up with neurology as needed. Thank you for letting me help with the patient's care. RUSTAM SILVA MD Jun 30, 2016 12:05
[2016-06-30] MEDS: OMEGA-3 FATTY ACIDS/FISH OIL 1,000 MG CAPSULE. PO SCH (12:15)
[2016-06-30] MEDS: MULTIVITAMIN with MINERAL TABLET. PO SCH (12:15)
[2016-06-30] MEDS: CHOLECALCIFEROL (VITAMIN D3) 1,000 UNIT TABLET PO SCH (12:15)
[2016-06-30] MEDS: ASPIRIN 81 MG TAB.CHEW PO SCH (12:15)
[2016-06-30] MEDS: ASCORBIC ACID 500 MG TABLET PO SCH (12:16)
[2016-06-30] MEDS: FUROSEMIDE 20 MG TABLET PO SCH (12:16)
[2016-06-30] MEDS: POTASSIUM CHLORIDE 20 MEQ TABLET.ER. PO SCH (12:16)
[2016-06-30] MEDS: SPIRONOLACTONE 25 MG TABLET PO SCH (12:16)
[2016-06-30] MEDS: MAGNESIUM OXIDE 400 MG TABLET PO SCH (12:16)
--- NOTE | 2016-06-30 12:16 | PDOC1 ---
History and Physical Date of Admission Date of Admission 06/29/16 Identification/Chief Complaint Chief Complaint headache Problems: Source Source: Chart review, Patient History of Present Illness History of Present Illness HPI HPI Patient is a 80 year old female who presents with severe headache. SHe has had similar headache before, not as bad as this. The headache was top head, tightness, not pulsating, gone now. She then feels not speak fluently, need a little bit time to find the words, denies weakness, numbness, tinglings. BP was found >180 in ER. pt also denies sob. has PPM. Past Medical History Cardiovascular: AFIB (/flutter), CAD, CHF, HTN, Hyperlipidemia Pulmonary: Other (sleep apnea) GI: Diverticulosis Psych: Psychosis Endocrine: Hypothyroidism Past Surgical History Past Surgical History: Pacemaker, Colectomy, Other (AV node ablation) Family History Family History: Hypertension Social History Smoke: No ALCOHOL: none Drugs: None Current Problem List Problem List Problems Medical Problems: (1) Headache Status: Acute (2) Speech problem Status: Acute (3) Weakness of right lower extremity Status: Acute Current Medications Current Medications Current Medications Medications (Trade) Dose Ordered Sig/Oren Start Time Stop Time Status Last Admin Dose Admin Acetaminophen (Tylenol) 650 mg PRN Q6HRS PRN 06/30/16 10:45 Acetaminophen/ Hydrocodone Bitart (Lortab 5/325) 1 tab PRN Q6HRS PRN 06/30/16 10:45 Ascorbic Acid (Vitamin C) 1,000 mg DAILY 06/30/16 11:00 Aspirin (Children'S Aspirin) 81 mg DAILY 06/30/16 11:00 Atorvastatin Calcium (Lipitor) 10 mg QHS 06/30/16 21:00 Fish Oil (Fish Oil) 1,000 mg DAILY 06/30/16 11:00 Furosemide (Lasix) 20 mg DAILY 06/30/16 11:00 Hydralazine HCl (Apresoline) 10 mg PRN Q4HRS PRN 06/30/16 11:00 Info (Anti-Coagulation Monitoring By Pharmacy) 1 each PRN DAILY PRN 06/30/16 11:15 Labetalol HCl (Normodyne) 20 mg 1X ONCE 06/29/16 21:45 06/29/16 21:46 DC 06/29/16 21:53 20 MG Levothyroxine Sodium (Synthroid) 100 mcg QODAY PRN 06/30/16 10:45 Losartan Potassium (Cozaar) 25 mg QHS 06/30/16 21:00 Magnesium Oxide (Magnesium Oxide) 400 mg DAILY 06/30/16 11:00 Morphine Sulfate 2 mg PRN Q2HR PRN 06/29/16 23:15 06/30/16 23:14 06/30/16 04:06 2 MG Multivitamins (Thera M Plus) 1 tab DAILY 06/30/16 11:00 Non-Formulary Medication 1 tab QHS 06/30/16 21:00 06/30/16 21:00 DC Ondansetron HCl (Zofran) 4 mg PRN Q6HRS PRN 06/30/16 11:00 Potassium Chloride (Klor-Con) 20 meq DAILY 06/30/16 11:00 Rivaroxaban (Xarelto) 20 mg DAILYWSUP 06/30/16 17:00 Spironolactone (Aldactone) 25 mg DAILY 06/30/16 11:00 Tramadol HCl (Ultram) 50 mg PRN Q6HRS PRN 06/30/16 10:45 Vitamin D (Vitamin D3) 1,000 unit DAILY 06/30/16 11:00 Allergies Allergies Allergies Coded Allergies Type Severity Reaction Last Updated Verified lisinopril Allergy Intermediate rash 06/30/14 Yes ROS Review of System CONSTITUTIONAL: No fever or chills EYES: No recent changes SKIN: No rash or itching CARDIOVASCULAR: No chest pain, syncope, palpitations, or edema RESPIRATORY: No SOB or cough GASTROINTESTINAL: No nausea, vomiting or abdominal pain NEUROLOGICAL: No headaches or weakness ENDOCRINE: No cold or heat intolerance GENITOURINARY: No urgency or frequency of urination MUSCULOSKELETAL: No back pain or joint pain LYMPHATICS: No enlarged lymph nodes PSYCHIATRIC: No anxiety or depression Physical Exam Physical Exam GEN.: No apparent distress. Alert and oriented. HEENT: Head is normocephalic, atraumatic NECK: Supple. LUNGS: Clear to auscultation. HEART: RRR, S1, S2 present. Peripheral pulses intact ABDOMEN: Soft, nontender. Positive bowel sounds. EXTREMITIES: Without any cyanosis. NEUROLOGIC: Normal speech, normal tone PSYCHIATRIC: Normal affect, normal mood. SKIN: No ulcerations Vitals Vitals Vital Signs Date Time Temp Pulse Resp B/P Pulse Ox O2 Delivery O2 Flow Rate FiO2 06/30/16 10:57 97.7 66 17 149/62 95 Room Air 97.7 Labs Labs Laboratory Tests Test 06/29/16 21:40 06/29/16 22:25 White Blood Count 9.2x10^3/uL (4.0-11.0) Red Blood Count 5.12x10^6/uL (3.50-5.40) Hemoglobin 14.6g/dL (12.0-15.5) Hematocrit 45.2% (36.0-47.0) Mean Corpuscular Volume 88fL (79-100) Mean Corpuscular Hemoglobin 29pg (25-35) Mean Corpuscular Hemoglobin Concent 32g/dL (31-37) Red Cell Distribution Width 14.3% (11.5-14.5) Platelet Count 160x10^3/uL (140-400) Neutrophils (%) (Auto) 85% (31-73) Lymphocytes (%) (Auto) 9% (24-48) Monocytes (%) (Auto) 5% (0-9) Eosinophils (%) (Auto) 1% (0-3) Basophils (%) (Auto) 0% (0-3) Neutrophils # (Auto) 7.8x10^3uL (1.8-7.7) Lymphocytes # (Auto) 0.8x10^3/uL (1.0-4.8) Monocytes # (Auto) 0.5x10^3/uL (0.0-1.1) Eosinophils # (Auto) 0.0x10^3/uL (0.0-0.7) Basophils # (Auto) 0.0x10^3/uL (0.0-0.2) Prothrombin Time 15.3SEC (11.7-14.0) Prothromb Time International Ratio 1.3 (0.8-1.1) Activated Partial Thromboplast Time 30SEC (24-38) Sodium Level 140mmol/L (136-145) Potassium Level 3.9mmol/L (3.5-5.1) Chloride Level 101mmol/L (98-107) Carbon Dioxide Level 31mmol/L (21-32) Anion Gap 8 (6-14) Blood Urea Nitrogen 16mg/dL (7-20) Creatinine 0.6mg/dL (0.6-1.0) Estimated GFR (Cockcroft-Gault) 116.1 BUN/Creatinine Ratio 27 (6-20) Glucose Level 100mg/dL (70-99) Calcium Level 9.3mg/dL (8.5-10.1) Total Bilirubin 1.0mg/dL (0.2-1.0) Aspartate Amino Transf (AST/SGOT) 29U/L (15-37) Alanine Aminotransferase (ALT/SGPT) 38U/L (14-59) Alkaline Phosphatase 101U/L (46-116) Troponin I Quantitative < 0.017ng/mL (0.000-0.055) QF-Ozr-O-Type Natriuretic Peptide 1213pg/mL (0-449) Total Protein 7.8g/dL (6.4-8.2) Albumin 3.9g/dL (3.4-5.0) Albumin/Globulin Ratio 1.0 (1.0-1.7) Urine Collection Type Unknown Urine Color Yellow Urine Clarity Clear Urine pH 6.5 Urine Specific [place] <=1.005 Urine Protein Negativemg/dL (NEG-TRACE) Urine Glucose (UA) Negativemg/dL (NEG) Urine Ketones (Stick) Negativemg/dL (NEG) Urine Blood Trace (NEG) Urine Nitrite Negative (NEG) Urine Bilirubin Negative (NEG) Urine Urobilinogen Dipstick 0.2mg/dL (0.2 mg/dL) Urine Leukocyte Esterase Negative (NEG) Urine RBC Occ/HPF (0-2) Urine WBC 0/HPF (0-4) Urine Squamous Epithelial Cells Few/LPF Urine Bacteria 0/HPF (0-FEW) Laboratory Tests Test 06/29/16 21:40 06/29/16 22:25 White Blood Count 9.2x10^3/uL (4.0-11.0) Red Blood Count 5.12x10^6/uL (3.50-5.40) Hemoglobin 14.6g/dL (12.0-15.5) Hematocrit 45.2% (36.0-47.0) Mean Corpuscular Volume 88fL (79-100) Mean Corpuscular Hemoglobin 29pg (25-35) Mean Corpuscular Hemoglobin Concent 32g/dL (31-37) Red Cell Distribution Width 14.3% (11.5-14.5) Platelet Count 160x10^3/uL (140-400) Neutrophils (%) (Auto) 85% (31-73) Lymphocytes (%) (Auto) 9% (24-48) Monocytes (%) (Auto) 5% (0-9) Eosinophils (%) (Auto) 1% (0-3) Basophils (%) (Auto) 0% (0-3) Neutrophils # (Auto) 7.8x10^3uL (1.8-7.7) Lymphocytes # (Auto) 0.8x10^3/uL (1.0-4.8) Monocytes # (Auto) 0.5x10^3/uL (0.0-1.1) Eosinophils # (Auto) 0.0x10^3/uL (0.0-0.7) Basophils # (Auto) 0.0x10^3/uL (0.0-0.2) Prothrombin Time 15.3SEC (11.7-14.0) Prothromb Time International Ratio 1.3 (0.8-1.1) Activated Partial Thromboplast Time 30SEC (24-38) Sodium Level 140mmol/L (136-145) Potassium Level 3.9mmol/L (3.5-5.1) Chloride Level 101mmol/L (98-107) Carbon Dioxide Level 31mmol/L (21-32) Anion Gap 8 (6-14) Blood Urea Nitrogen 16mg/dL (7-20) Creatinine 0.6mg/dL (0.6-1.0) Estimated GFR (Cockcroft-Gault) 116.1 BUN/Creatinine Ratio 27 (6-20) Glucose Level 100mg/dL (70-99) Calcium Level 9.3mg/dL (8.5-10.1) Total Bilirubin 1.0mg/dL (0.2-1.0) Aspartate Amino Transf (AST/SGOT) 29U/L (15-37) Alanine Aminotransferase (ALT/SGPT) 38U/L (14-59) Alkaline Phosphatase 101U/L (46-116) Troponin I Quantitative < 0.017ng/mL (0.000-0.055) KV-Mip-V-Type Natriuretic Peptide 1213pg/mL (0-449) Total Protein 7.8g/dL (6.4-8.2) Albumin 3.9g/dL (3.4-5.0) Albumin/Globulin Ratio 1.0 (1.0-1.7) Urine Collection Type Unknown Urine Color Yellow Urine Clarity Clear Urine pH 6.5 Urine Specific [place] <=1.005 Urine Protein Negativemg/dL (NEG-TRACE) Urine Glucose (UA) Negativemg/dL (NEG) Urine Ketones (Stick) Negativemg/dL (NEG) Urine Blood Trace (NEG) Urine Nitrite Negative (NEG) Urine Bilirubin Negative (NEG) Urine Urobilinogen Dipstick 0.2mg/dL (0.2 mg/dL) Urine Leukocyte Esterase Negative (NEG) Urine RBC Occ/HPF (0-2) Urine WBC 0/HPF (0-4) Urine Squamous Epithelial Cells Few/LPF Urine Bacteria 0/HPF (0-FEW) VTE Prophylaxis Ordered VTE Prophylaxis Devices: Yes VTE Pharmacological Prophylaxi: Yes Assessment/Plan Assessment/Plan 1. intractable headache, 2/2 htn likely 2. HTN encephalopathy 3. h/o PAFIB POST ablation 4. ppm 5. h/o CAD with PCI 6. HTN URgency 7. hypothyroidism 8. oa plan: 1. fu with neuro, card pt cannot do brain MRI 2/2 PPM 2. cont home meds dc pt home hopefully tmr if bp stable. speech ANTWON Otto MD Jun 30, 2016 12:16
[2016-06-30] MEDS ORDERED: RIVAROXABAN 15 MG TABLET. PO SCH (17:00)
[2016-06-30] MEDS ORDERED: RIVAROXABAN 10 MG TABLET. PO SCH (17:00)
[2016-06-30] MEDS ORDERED: NON FORMULARY ITEM (Pravastatin Sodium 1 TAB) PO SCH (21:00)
[2016-06-30] MEDS ORDERED: ATORVASTATIN CALCIUM 10 MG TABLET. PO SCH (21:00)
[2016-06-30] MEDS ORDERED: LOSARTAN POTASSIUM 50 MG TABLET. PO SCH (21:00)
[2016-06-30] MEDS: TRAMADOL 50 MG TABLET. PO PRN (21:26)
[2016-07-01 03:00] VITALS: BP 141/75
[2016-07-01 06:24] LABS: BASO % 1 % (0-3); EOS % 1 % (0-3); HEMATOCRIT 40.4 % (36.0-47.0); LYMPH % 28 % (24-48); MEAN CORPUSCULAR HEMOGLOBIN 29 pg (25-35); MEAN CORPUSCULAR HGB CONC 32 g/dL (31-37); MEAN CORPUSCULAR VOLUME 89 fL (79-100); MONO % 10 % (0-9); NEUT % 60 % (31-73); PLATELET COUNT 149 x10^3/uL (140-400); RED BLOOD COUNT 4.54 x10^6/uL (3.50-5.40); RED CELL DISTRIBUTION WIDTH 14.5 % (11.5-14.5); WHITE BLOOD COUNT 7.1 x10^3/uL (4.0-11.0)
[2016-07-01 06:51] LABS: CALCIUM 8.8 mg/dL (8.5-10.1); CREATININE 0.8 mg/dL (0.6-1.0); GFR 83.1; POTASSIUM 4.5 mmol/L (3.5-5.1)
[2016-07-01 07:20] VITALS: BP 169/91
[2016-07-01] MEDS: OMEGA-3 FATTY ACIDS/FISH OIL 1,000 MG CAPSULE. PO SCH (08:38)
[2016-07-01] MEDS: POTASSIUM CHLORIDE 20 MEQ TABLET.ER. PO SCH (08:38)
[2016-07-01] MEDS: SPIRONOLACTONE 25 MG TABLET PO SCH (08:38)
[2016-07-01] MEDS: CHOLECALCIFEROL (VITAMIN D3) 1,000 UNIT TABLET PO SCH (08:38)
[2016-07-01] MEDS: ASPIRIN 81 MG TAB.CHEW PO SCH (08:38)
[2016-07-01] MEDS: ASCORBIC ACID 500 MG TABLET PO SCH (08:38)
[2016-07-01] MEDS: MULTIVITAMIN with MINERAL TABLET. PO SCH (08:38)
[2016-07-01] MEDS: MAGNESIUM OXIDE 400 MG TABLET PO SCH (08:38)
[2016-07-01] MEDS: FUROSEMIDE 20 MG TABLET PO SCH (08:38)
[2016-07-01] MEDS ORDERED: GLUCOSAM PO SCH (09:00)
[2016-07-01] MEDS ORDERED: CHONDROIT PO SCH (09:00)
[2016-07-01] MEDS ORDERED: [UNRECOGNIZED DRUG - OTHER] PO SCH (09:00)
[2016-07-01] MEDS ORDERED: MANGANESE PO SCH (09:00)
[2016-07-01] MEDS: TRAMADOL 50 MG TABLET. PO PRN (09:09)
[2016-07-01] MEDS ORDERED: ATOR10TA60 PO (09:48)
--- NOTE | 2016-07-01 10:13 | PDOC ---
PROGRESS NOTES Assessment Problems Medical Problems: (1) Headache Status: Acute (2) Speech problem Status: Acute (3) Weakness of right lower extremity Status: Acute Patient complains of language difficulties, she really is within normal limits on my bedside exam. Speech therapy concurs. 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 There is no evidence of dementia, particularly frontotemporal dementia Plan Okay for discharge Follow-up with neurology as needed. Subjective No complaints Objective Vital Signs Date Time Temp Pulse Resp B/P Pulse Ox O2 Delivery O2 Flow Rate FiO2 07/01/16 09:09 18 98 Room Air 07/01/16 07:20 97.8 72 169/91 97.8 Intake and Output 07/01/16 07:00 Intake Total 1160 ml Output Total 300 ml Balance 860 ml Intake Oral 1160 ml Output Urine Total 300 ml # Voids 5 PHYSICAL EXAM Alert. Oriented to time, place and person. PERRL. EOMI. CN: no focal findings. Muscle tone: normal. Muscle strength: 5/5 DTR: 2+ Plantar reflex: flexor Gait: normal. Sensory exam: no abnormal findings. No cerebellar signs elicited. Review of Relevant I have reviewed the following items timothy (where applicable) has been applied. Labs Laboratory Tests Test 06/29/16 21:40 06/29/16 22:25 07/01/16 05:40 White Blood Count 9.2x10^3/uL (4.0-11.0) 7.1x10^3/uL (4.0-11.0) Red Blood Count 5.12x10^6/uL (3.50-5.40) 4.54x10^6/uL (3.50-5.40) Hemoglobin 14.6g/dL (12.0-15.5) 13.0g/dL (12.0-15.5) Hematocrit 45.2% (36.0-47.0) 40.4% (36.0-47.0) Mean Corpuscular Volume 88fL (79-100) 89fL (79-100) Mean Corpuscular Hemoglobin 29pg (25-35) 29pg (25-35) Mean Corpuscular Hemoglobin Concent 32g/dL (31-37) 32g/dL (31-37) Red Cell Distribution Width 14.3% (11.5-14.5) 14.5% (11.5-14.5) Platelet Count 160x10^3/uL (140-400) 149x10^3/uL (140-400) Neutrophils (%) (Auto) 85% (31-73) 60% (31-73) Lymphocytes (%) (Auto) 9% (24-48) 28% (24-48) Monocytes (%) (Auto) 5% (0-9) 10% (0-9) Eosinophils (%) (Auto) 1% (0-3) 1% (0-3) Basophils (%) (Auto) 0% (0-3) 1% (0-3) Neutrophils # (Auto) 7.8x10^3uL (1.8-7.7) 4.3x10^3uL (1.8-7.7) Lymphocytes # (Auto) 0.8x10^3/uL (1.0-4.8) 2.0x10^3/uL (1.0-4.8) Monocytes # (Auto) 0.5x10^3/uL (0.0-1.1) 0.7x10^3/uL (0.0-1.1) Eosinophils # (Auto) 0.0x10^3/uL (0.0-0.7) 0.1x10^3/uL (0.0-0.7) Basophils # (Auto) 0.0x10^3/uL (0.0-0.2) 0.0x10^3/uL (0.0-0.2) Prothrombin Time 15.3SEC (11.7-14.0) Prothromb Time International Ratio 1.3 (0.8-1.1) Activated Partial Thromboplast Time 30SEC (24-38) Sodium Level 140mmol/L (136-145) 142mmol/L (136-145) Potassium Level 3.9mmol/L (3.5-5.1) 4.5mmol/L (3.5-5.1) Chloride Level 101mmol/L (98-107) 104mmol/L (98-107) Carbon Dioxide Level 31mmol/L (21-32) 31mmol/L (21-32) Anion Gap 8 (6-14) 7 (6-14) Blood Urea Nitrogen 16mg/dL (7-20) 19mg/dL (7-20) Creatinine 0.6mg/dL (0.6-1.0) 0.8mg/dL (0.6-1.0) Estimated GFR (Cockcroft-Gault) 116.1 83.1 BUN/Creatinine Ratio 27 (6-20) Glucose Level 100mg/dL (70-99) 98mg/dL (70-99) Calcium Level 9.3mg/dL (8.5-10.1) 8.8mg/dL (8.5-10.1) Total Bilirubin 1.0mg/dL (0.2-1.0) Aspartate Amino Transf (AST/SGOT) 29U/L (15-37) Alanine Aminotransferase (ALT/SGPT) 38U/L (14-59) Alkaline Phosphatase 101U/L (46-116) Troponin I Quantitative < 0.017ng/mL (0.000-0.055) GR-Qxx-N-Type Natriuretic Peptide 1213pg/mL (0-449) Total Protein 7.8g/dL (6.4-8.2) Albumin 3.9g/dL (3.4-5.0) Albumin/Globulin Ratio 1.0 (1.0-1.7) Urine Collection Type Unknown Urine Color Yellow Urine Clarity Clear Urine pH 6.5 Urine Specific [place] <=1.005 Urine Protein Negativemg/dL (NEG-TRACE) Urine Glucose (UA) Negativemg/dL (NEG) Urine Ketones (Stick) Negativemg/dL (NEG) Urine Blood Trace (NEG) Urine Nitrite Negative (NEG) Urine Bilirubin Negative (NEG) Urine Urobilinogen Dipstick 0.2mg/dL (0.2 mg/dL) Urine Leukocyte Esterase Negative (NEG) Urine RBC Occ/HPF (0-2) Urine WBC 0/HPF (0-4) Urine Squamous Epithelial Cells Few/LPF Urine Bacteria 0/HPF (0-FEW) Laboratory Tests Test 07/01/16 05:40 White Blood Count 7.1x10^3/uL (4.0-11.0) Red Blood Count 4.54x10^6/uL (3.50-5.40) Hemoglobin 13.0g/dL (12.0-15.5) Hematocrit 40.4% (36.0-47.0) Mean Corpuscular Volume 89fL (79-100) Mean Corpuscular Hemoglobin 29pg (25-35) Mean Corpuscular Hemoglobin Concent 32g/dL (31-37) Red Cell Distribution Width 14.5% (11.5-14.5) Platelet Count 149x10^3/uL (140-400) Neutrophils (%) (Auto) 60% (31-73) Lymphocytes (%) (Auto) 28% (24-48) Monocytes (%) (Auto) 10% (0-9) Eosinophils (%) (Auto) 1% (0-3) Basophils (%) (Auto) 1% (0-3) Neutrophils # (Auto) 4.3x10^3uL (1.8-7.7) Lymphocytes # (Auto) 2.0x10^3/uL (1.0-4.8) Monocytes # (Auto) 0.7x10^3/uL (0.0-1.1) Eosinophils # (Auto) 0.1x10^3/uL (0.0-0.7) Basophils # (Auto) 0.0x10^3/uL (0.0-0.2) Sodium Level 142mmol/L (136-145) Potassium Level 4.5mmol/L (3.5-5.1) Chloride Level 104mmol/L (98-107) Carbon Dioxide Level 31mmol/L (21-32) Anion Gap 7 (6-14) Blood Urea Nitrogen 19mg/dL (7-20) Creatinine 0.8mg/dL (0.6-1.0) Estimated GFR (Cockcroft-Gault) 83.1 Glucose Level 98mg/dL (70-99) Calcium Level 8.8mg/dL (8.5-10.1) Medications Current Medications Ondansetron HCl (Zofran) 4 mg 1X ONCE IV Last administered on 06/29/16 21:52 ; Start 06/29/16 at 21:45; Stop 06/29/16 at 21:46; Status DC Labetalol HCl (Normodyne) 20 mg 1X ONCE IVP Last administered on 06/29/16 21: 53; Start 06/29/16 at 21:45; Stop 06/29/16 at 21:46; Status DC Furosemide (Lasix) 20 mg 1X ONCE IVP Last administered on 06/29/16 23:00; Start 06/29/16 at 23:00; Stop 06/29/16 at 23:01; Status DC Acetaminophen (Tylenol) 650 mg 1X ONCE PO Last administered on 06/29/16 23:02 ; Start 06/29/16 at 23:00; Stop 06/29/16 at 23:01; Status DC Ondansetron HCl (Zofran) 4 mg PRN Q8HRS PRN IV NAUSEA/VOMITING; Start 06/29/16 at 23:15; Stop 06/30/16 at 15:54; Status DC Morphine Sulfate 2 mg PRN Q2HR PRN IV PAIN Last administered on 06/30/16 04:06 ; Start 06/29/16 at 23:15; Stop 06/30/16 at 23:14; Status DC Acetaminophen (Tylenol) 650 mg PRN Q4HRS PRN PO FEVER Last administered on 06/30 03:35; Start 06/29/16 at 23:15; Stop 06/30/16 at 23:14; Status DC Acetaminophen (Tylenol) 650 mg PRN Q6HRS PRN PO PAIN; Start 06/30/16 at 10:45 Aspirin (Children'S Aspirin) 81 mg DAILY PO Last administered on 07/01/16 08: 38; Start 06/30/16 at 11:00 Furosemide (Lasix) 20 mg DAILY PO Last administered on 07/01/16 08:38; Start 06/30/16 at 11:00 Acetaminophen/ Hydrocodone Bitart (Lortab 5/325) 1 tab PRN Q6HRS PRN PO PAIN; Start 06/30/16 at 10:45 Levothyroxine Sodium (Synthroid) 100 mcg QODAY PRN PO SEE COMMENTS; Start 06/30 at 10:45 Losartan Potassium (Cozaar) 25 mg QHS PO Last administered on 06/30/16 21:25; Start 06/30/16 at 21:00 Magnesium Oxide (Magnesium Oxide) 400 mg DAILY PO Last administered on 08:38; Start 06/30/16 at 11:00 Potassium Chloride (Klor-Con) 20 meq DAILY PO Last administered on 07/01/16 08 :38; Start 06/30/16 at 11:00 Spironolactone (Aldactone) 25 mg DAILY PO Last administered on 07/01/16 08:38 ; Start 06/30/16 at 11:00 Tramadol HCl (Ultram) 50 mg PRN Q6HRS PRN PO PAIN Last administered on 09:09; Start 06/30/16 at 10:45 Ascorbic Acid (Vitamin C) 1,000 mg DAILY PO Last administered on 07/01/16 08: 38; Start 06/30/16 at 11:00 Non-Formulary Medication 1 each DAILY PO ; Start 07/01/16 at 09:00; Stop at 09:00; Status DC Multivitamins (Thera M Plus) 1 tab DAILY PO Last administered on 07/01/16 08: 38; Start 06/30/16 at 11:00 Vitamin D (Vitamin D3) 1,000 unit DAILY PO Last administered on 07/01/16 08:38 ; Start 06/30/16 at 11:00 Fish Oil (Fish Oil) 1,000 mg DAILY PO Last administered on 07/01/16 08:38; Start 06/30/16 at 11:00 Non-Formulary Medication 1 tab QHS PO ; Start 06/30/16 at 21:00; Stop 06/30/16 at 21:00; Status DC Rivaroxaban (Xarelto) 20 mg DAILYWSUP PO ; Start 06/30/16 at 17:00; Stop at 17:00; Status DC Ondansetron HCl (Zofran) 4 mg PRN Q6HRS PRN IV NAUSEA/VOMITING; Start 06/30/16 at 11:00 Hydralazine HCl (Apresoline) 10 mg PRN Q4HRS PRN IVP ELEVATED BP, SEE COMMENTS ; Start 06/30/16 at 11:00 Info (Anti-Coagulation Monitoring By Pharmacy) 1 each PRN DAILY PRN MC SEE COMMENTS; Start 06/30/16 at 11:15 Atorvastatin Calcium (Lipitor) 10 mg QHS PO Last administered on 06/30/16 21: 25; Start 06/30/16 at 21:00 Rivaroxaban (Xarelto) 15 mg DAILYWSUP PO Last administered on 3/23/17at 17:02; Start 06/30/16 at 17:00 Active Scripts Active Atorvastatin Calcium 10 Mg Tablet 10 Mg PO QHS Hydrocodone-Apap 5-325 (Hydrocodone Bit/Acetaminophen) 1 Each Tablet 1 Tab PO PRN Q6HRS PRN Reported Magnesium Oxide 400 Mg Tablet 1 Tab PO DAILY Acetaminophen 500 Mg Tablet 2 Tab PO PRN PRN Losartan Potassium 50 Mg Tablet 0.5 PO QHS Pravastatin Sodium 40 Mg Tablet 1 Tab PO QHS Xarelto (Rivaroxaban) 20 Mg Tablet 20 Mg PO DAILYWSUP Fish Oil ([place]-3 Fatty Acids) 300 Mg Capsule 300 Mg PO DAILY Cosamin Ds Capsule (Glucosam/Chondroit/C/Manganese) 1 Each Capsule 1 Each PO DAILY Vitamin C (Ascorbic Acid) 1,000 Mg Tablet 1,000 Mg PO DAILY Vitamin D3 Complete Caplet (Mv-Mn/Iron/Fa/Herbal Cmplx#190) 1 Each Tablet 1 Each PO DAILY Centrum Silver Tablet (Multivits-Min/Fa/Lycopene/Lut) 1 Each Tablet 1 Each PO DAILY Aspirin 81 Mg Tab.chew 1 Tab PO DAILY Tramadol Hcl 50 Mg Tablet 2 Tab PO PRN PRN Levothyroxine Sodium 100 Mcg Tablet 1 Tab PO QODAY PRN Potassium Chloride 20 Meq Tab.er.prt 1 Tab PO DAILY Furosemide 20 Mg Tablet 1 Tab PO DAILY Spironolactone 25 Mg Tablet 1 Tab PO DAILY Vitals/I & O Vital Sign - Last 24 Hours 06/30/16 06/30/16 06/30/16 06/30/16 10:57 15:15 19:00 20:00 Temp 97.7 97.9 97.5 97.7 97.9 97.5 Pulse 66 68 66 Resp 18 B/P 149/62 131/69 142/69 Pulse Ox 95 95 97 O2 Delivery Room Air Room Air Room Air Room Air 06/30/16 06/30/16 07/01/16 07/01/16 21:25 23:00 03:00 07:20 Temp 97.1 98.5 97.8 97.1 98.5 97.8 Pulse 66 70 65 72 Resp 18 18 17 B/P 142/69 159/84 141/75 169/91 Pulse Ox 94 95 98 O2 Delivery Room Air Room Air Room Air 07/01/16 07/01/16 08:00 09:09 Resp 18 Pulse Ox 98 O2 Delivery Room Air Room Air Intake and Output 06/30/16 06/30/16 07/01/16 15:00 23:00 07:00 Intake Total 620 ml 540 ml Output Total 300 ml Balance 620 ml 540 ml -300 ml RUSTAM SILVA MD Jul 01, 2016 10:13
[2016-07-01 11:02] VITALS: BP 140/74
--- NOTE | 2016-07-01 11:04 | PDOC ---
CARDIO Progress Notes Date and Time Date of Service 06/30/2016 Time of Evaluation 1059 Subjective Subjective: No Chest Pain, No shortness of breath, No Palpitations, No Dizziness Vitals Vitals Vital Signs Date Time Temp Pulse Resp B/P Pulse Ox O2 Delivery O2 Flow Rate FiO2 07/01/16 10:32 18 98 Room Air 07/01/16 07:20 97.8 72 169/91 97.8 Weight Weight [ ] Input and Output Intake and Output Intake and Output 07/01/16 07:00 Intake Total 1160 ml Output Total 300 ml Balance 860 ml Intake Oral 1160 ml Output Urine Total 300 ml # Voids 5 Laboratory Labs Laboratory Tests Test 07/01/16 05:40 White Blood Count 7.1x10^3/uL (4.0-11.0) Red Blood Count 4.54x10^6/uL (3.50-5.40) Hemoglobin 13.0g/dL (12.0-15.5) Hematocrit 40.4% (36.0-47.0) Mean Corpuscular Volume 89fL (79-100) Mean Corpuscular Hemoglobin 29pg (25-35) Mean Corpuscular Hemoglobin Concent 32g/dL (31-37) Red Cell Distribution Width 14.5% (11.5-14.5) Platelet Count 149x10^3/uL (140-400) Neutrophils (%) (Auto) 60% (31-73) Lymphocytes (%) (Auto) 28% (24-48) Monocytes (%) (Auto) 10% (0-9) Eosinophils (%) (Auto) 1% (0-3) Basophils (%) (Auto) 1% (0-3) Neutrophils # (Auto) 4.3x10^3uL (1.8-7.7) Lymphocytes # (Auto) 2.0x10^3/uL (1.0-4.8) Monocytes # (Auto) 0.7x10^3/uL (0.0-1.1) Eosinophils # (Auto) 0.1x10^3/uL (0.0-0.7) Basophils # (Auto) 0.0x10^3/uL (0.0-0.2) Sodium Level 142mmol/L (136-145) Potassium Level 4.5mmol/L (3.5-5.1) Chloride Level 104mmol/L (98-107) Carbon Dioxide Level 31mmol/L (21-32) Anion Gap 7 (6-14) Blood Urea Nitrogen 19mg/dL (7-20) Creatinine 0.8mg/dL (0.6-1.0) Estimated GFR (Cockcroft-Gault) 83.1 Glucose Level 98mg/dL (70-99) Calcium Level 8.8mg/dL (8.5-10.1) Physical Exam HEENT: Neck Supple W Full Motion Chest: Symmetric LUNGS: Clear to Auscultation Heart: S1S2, irregularly irregular, other (tele: V-paced; underlying atrial fib ) Abdomen: Soft N/T Extremities: No Edema Neurology: alert, oriented, follow commands Assessment Assessment 1. malignant HTN improving control will add metoprolol succinate 25 mg daily as this will address BP as well as rate control for atrial fib and her CMP 2. headaches per primary and Neuro - resolved with BP control PPM is NOT MRI COMPATIBLE/CONDITIONAL 3. permanent atrial fibrillation adding BB to improve rate control continue OAC with Xarelto for stroke prevention 4. SSS with previous AV node ablation Biotronik dual chamber PPM interrogated 05/2016 without significant findings continue usual interrogation schedule 5. CAD with history of PCI/UBALDO no anginal symptoms associated with HTN 6. cardiomyopathy, presumed ischemic depressed LVEF of 40-45% on TTE 03/2016 continue diuretics, aldosterone agonist and ARB adding metoprolol succinate 7. HLD continue statin therapy Will plan to see back in the office after ICD interrogation in August Pt will monitor BP BID and call if SBP consistently > 150 STANLEY LOPEZ APRN Jul 01, 2016 11:04
[2016-07-01] MEDS ORDERED: METO25TA9 PO (11:14)
--- NOTE | 2016-07-01 11:15 | PDOC3 ---
Discharge Summary [facility] Date of Admission: Jun 29, 2016 Discharge Date: Jul 01, 2016 Admitting Diagnosis 1. intractable headache, 2/2 htn urgency likely 2. HTN encephalopathy 3. h/o PAFIB POST ablation 4. ppm 5. h/o CAD with PCI 6. HTN URgency 7. hypothyroidism 8. oa Problems: Final Diagnosis CONSULTS neuro, card Brief Hospital Course Patient is a 80 year old female who presents with severe headache. SHe has had similar headache before, not as bad as this. The headache was top head, tightness, not pulsating, gone now. She then feels not speak fluently, need a little bit time to find the words, denies weakness, numbness, tinglings. BP was found >180 in ER. pt also denies sob. has PPM. Pt told me she takes her meds except lasix, but as per card, pt is not compliant with her meds. Head CT neg. Cannot do MRI 2/2 PPM Pt has no headache now, Bp OK, headache is 2/2 htn encephalopathy likely. speech evaluated pt, no problem. dc home with metoprolol 25mg daily, plus lorsartan, aldactone as home meds. dc time 35min GEN.: No apparent distress. Alert and oriented. HEENT: Head is normocephalic, atraumatic NECK: Supple. LUNGS: Clear to auscultation. HEART: RRR, S1, S2 present. Peripheral pulses intact ABDOMEN: Soft, nontender. Positive bowel sounds. EXTREMITIES: Without any cyanosis. NEUROLOGIC: Normal speech, normal tone PSYCHIATRIC: Normal affect, normal mood. SKIN: No ulcerations Patient History: Unknown Problems: Disposition home CONDITION AT DISCHARGE: Improved Diet regular Scheduled Ascorbic Acid (Vitamin C) 1,000 MG PO DAILY (Reported) Aspirin (Aspirin) 1 TAB PO DAILY (Reported) Atorvastatin Calcium (Atorvastatin Calcium) 10 MG PO QHS Furosemide (Furosemide) 1 TAB PO DAILY (Reported) Glucosam/Chondroit/C/Manganese (Cosamin Ds Capsule) 1 EACH PO DAILY (Reported) Losartan Potassium (Losartan Potassium) 0.5 PO QHS (Reported) Magnesium Oxide (Magnesium Oxide) 1 TAB PO DAILY (Reported) Metoprolol Succinate (Metoprolol Succinate ( Xl )) 25 MG PO DAILY Multivits-Min/Fa/Lycopene/Lut (Centrum Silver Tablet) 1 EACH PO DAILY (Reported ) Mv-Mn/Iron/Fa/Herbal Cmplx#190 (Vitamin D3 Complete Caplet) 1 EACH PO DAILY ( Reported) [place]-3 Fatty Acids (Fish Oil) 300 MG PO DAILY (Reported) Potassium Chloride (Potassium Chloride) 1 TAB PO DAILY (Reported) Pravastatin Sodium (Pravastatin Sodium) 1 TAB PO QHS (Reported) Rivaroxaban (Xarelto) 20 MG PO DAILYWSUP (Reported) Spironolactone (Spironolactone) 1 TAB PO DAILY (Reported) Scheduled PRN Acetaminophen (Acetaminophen) 2 TAB PO PRN PRN PRN PAIN (Reported) Hydrocodone Bit/Acetaminophen (Hydrocodone-Apap 5-325 ) 1 TAB PO PRN Q6HRS PRN PRN PAIN Levothyroxine Sodium (Levothyroxine Sodium) 1 TAB PO QODAY PRN PRN SEE COMMENTS (Reported) Tramadol Hcl (Tramadol Hcl) 2 TAB PO PRN PRN PRN PAIN (Reported) Follow Up pcp and card in 2 weeks ANTWON PALMER MD Jul 01, 2016 11:15
[2016-07-01 14:36] VITALS: BP 153/91
[2016-07-02] MEDS ORDERED: METOPROLOL SUCC 24HR ER 25 MG TAB.ER.24H. PO SCH (09:00)
== END 2016-07-01 16:56 | disposition home or self-care (01) | DRG 78 ==
LOC: ER 20:42 → 6 SOUTH 23:06
PROVIDERS: ADMIT Internal Medicine; ATTEND Internal Medicine
DX: I67.4 Hypertensive encephalopathy (principal); I50.22 Chronic systolic (congestive) heart failure; I16.0 Hypertensive urgency; E03.9 Hypothyroidism, unspecified; E78.00 Pure hypercholesterolemia, unspecified; E78.5 Hyperlipidemia, unspecified; G47.30 Sleep apnea, unspecified; I07.1 Rheumatic tricuspid insufficiency; I25.10 Atherosclerotic heart disease of native coronary artery without angina pectoris; I25.5 Ischemic cardiomyopathy; I11.0 Hypertensive heart disease with heart failure; I34.0 Nonrheumatic mitral (valve) insufficiency; M19.90 Unspecified osteoarthritis, unspecified site; I48.2 Chronic atrial fibrillation; F29 Unspecified psychosis not due to a substance or known physiological condition; Z88.8 Allergy status to other drugs, medicaments and biological substances; Z98.61 Coronary angioplasty status; Z91.19 Patient's noncompliance with other medical treatment and regimen; Z82.49 Family history of ischemic heart disease and other diseases of the circulatory system; Z95.0 Presence of cardiac pacemaker
CPT/HCPCS: 36415; 70450; 71010; 80048; 80053; 81001; 83880; 84484; 85027; 85610; 85730; 93005; 96374; 96375; J2270; J2405; J3490; 92610; 99285-25

== ENCOUNTER → 2016-10-19 | Outpatient (CLI) | payer MEDICARE ==
[~2016-10-19] MED LIST changes: +ASPI-630 PO; -ASPI81TA2 PO; +ATOR10TA60 PO; -HYDR-2666 PO; +HYDR-2758 PO; +METO25TA9 PO
[2016-10-19 12:23] LABS: CALCIUM 8.9 mg/dL (8.5-10.1); CREATININE 0.9 mg/dL (0.6-1.0); GFR 72.5; POTASSIUM 4.2 mmol/L (3.5-5.1)
== END | disposition home or self-care (01) ==
LOC: LAB 11:27
PROVIDERS: ATTEND Internal Medicine Cardiovascular Disease
DX: I42.9 Cardiomyopathy, unspecified (principal)
CPT/HCPCS: 36415; 80048; 83880

== ENCOUNTER → 2017-08-02 | Outpatient (CLI) | payer MEDICARE | END | disposition home or self-care (01) | LOC: ECHO 10:12 | DX: I49.5 Sick sinus syndrome (principal); I08.1 Rheumatic disorders of both mitral and tricuspid valves | CPT/HCPCS: 93306 ==

== ENCOUNTER → 2018-04-24 | Outpatient (CLI) | payer MEDICARE ==
[~2018-04-24] MED LIST changes: -HYDR-2758 PO; +HYDR-2761 PO; +LOSA-73 PO; -LOSA50TA6 PO; +METO-239 PO; -METO25TA9 PO; -SPIR25TA3 PO; +SPIR25TA5 PO
--- NOTE | 2018-04-24 11:45 | CARD ---
MR#: [id number] Date of Study: 04/24/2018 Ordering Physician: BALA ROSALES, Referring Physician: BALA ROSALES, Tech: Genny Morgan APPROVED REPORT EXAM: Two-dimensional and M-mode echocardiogram with Doppler and color Doppler. Other Information Quality : AverageHR: 80bpm INDICATION Dyspnea Chronic Systolic failure RISK FACTORS Hypertension Hyperlipidemia 2D DIMENSIONS Left Atrium(2D)3.9 (1.6-4.0cm)IVSd1.0 (0.7-1.1cm) Aortic Root(2D)2.9 (2.0-3.7cm)LVDd5.0 (3.9-5.9cm) LVOT Diameter2.1 (1.8-2.4cm)PWd1.1 (0.7-1.1cm) LVDs3.5 (2.5-4.0cm)FS (%) 30.7 % SV68.0 ml Aortic Valve AoV Peak Dimitry.130.3cm/sAoV VTI25.1cm AO Peak GR.6.8mmHgLVOT Peak Dimitry.46.6cm/s LVOT VTI 9.37cmAO Mean GR.4mmHg STEPHENIE (VMAX)0.22sc0JMP (VTI)1.26cm2 Mitral Valve MV E Gvkvvvea686.9cm/sMV DECEL AHIY102xv MV A Ehzecelg15.8cm/sMV NEP43kx E/A Ratio4.0MVA (PHT)4.67cm2 TDI E/Lateral E'10.4E/Medial E'14.9 Pulmonary Valve PV Peak Bozzsrbk34.2cm/sPV Peak Grad.3mmHg Tricuspid Valve TR P. [id number]/sRAP DUEPRSOI4hmIp TR Peak Gr.14nbSiUIML43liHi LEFT VENTRICLE The left ventricle is normal size. There is borderline concentric left ventricular hypertrophy. The l eft ventricular systolic function is mildly decreased. LV ejection fraction is estimated at 40%. Ther e is mild global hypokinesis of the left ventricle. RIGHT VENTRICLE The right ventricle is normal size. There is normal right ventricular wall thickness. The right ventr icular systolic function is normal. ATRIA The left atrium is moderately dilated. The right atrium is mildly dilated. The atrial septum is aneur ysmal. AORTIC VALVE The aortic valve is normal in structure and function. Doppler and Color Flow revealed no significant aortic regurgitation. There is no significant aortic valvular stenosis. Calculated aortic valve area is 1.26 cm2 with maximum pressure gradient of 7 mmHg and mean pressure gradient of 4 mmHg. MITRAL VALVE The mitral valve is thickened. The miitral annular calcification is mild. The posterior mitral valve leaflet appears thickened. There is no evidence of mitral valve prolapse. There is no mitral valve st enosis. Doppler and Color-flow revealed mild mitral regurgitation. TRICUSPID VALVE The tricuspid valve is normal in structure and function. Doppler and Color Flow revealed moderate tri cuspid regurgitation. There is no tricuspid valve stenosis. PULMONIC VALVE The pulmonary valve is normal in structure and function. Doppler and Color Flow revealed mild pulmoni c valvular regurgitation. GREAT VESSELS The aortic root is normal in size. The IVC is normal in size and collapses >50% with inspiration. PERICARDIAL EFFUSION There is no evidence of significant pericardial effusion. Critical Notification Critical Value: No <Conclusion> The left ventricle is normal size. The left ventricular systolic function is mildly decreased. LV ejection fraction is estimated at 40%. There is mild global hypokinesis of the left ventricle. There is borderline concentric left ventricular hypertrophy. There is no significant aortic valvular stenosis. Calculated aortic valve area is 1.26 cm2 with maximum pressure gradient of 7 mmHg and mean pressure g radient of 4 mmHg. Doppler and Color Flow revealed no significant aortic regurgitation. Doppler and Color-flow revealed mild mitral regurgitation. Doppler and Color Flow revealed moderate tricuspid regurgitation. Signed by : Bala Rosales MD Electronically Approved : 04/24/2018 11:42:56
== END | disposition home or self-care (01) ==
LOC: ECHO 09:50
PROVIDERS: ATTEND Internal Medicine Cardiovascular Disease
DX: I08.1 Rheumatic disorders of both mitral and tricuspid valves (principal); I11.0 Hypertensive heart disease with heart failure; I50.22 Chronic systolic (congestive) heart failure; E78.49 Other hyperlipidemia
CPT/HCPCS: 93306

== ENCOUNTER → 2019-03-15 | Outpatient (CLI) | payer MEDICARE ==
[~2019-03-15] MED LIST changes: -MAGN400T3 PO; +MAGN400T5 PO; +REGADENOSON 0.4 MG/5 ML DISP.SYRIN. IV ONE
--- NOTE | 2019-03-15 13:27 | RAD ---
MR#: [id number] Date of Study: 03/15/2019 Ordering Physician: MELISSA LOFTON Referring Physician: LIDYA PHILLIPS Tech: RT Robbin Giron) (N) APPROVED REPORT Test Type: Pharmacological Stress Nurse/Tech: Jese PHAN Test Indications: CAD Cardiac History: Cardiac cath w/ stents 5yrs ago, HTN, PPM, See EMR Medications: See EMR Medical History: See EMR Resting ECG: V-Paced Resting Heart Rate: 75 bpm Resting Blood Pressure: 177/92mmHg Pretest Chest Pain: No chest pain Nurse/Tech Notes Lungs CTA, Heart tones regular. Consent: The procedure was explained to the patient in lay terms. Informed consent was witnessed. Daniel eout was entered into Attentio. History and Stress Test performed by RT Luis Carlos (R) (N) Pharm. Details Pharmacologic stress testing was performed using 0.4mg per 5ml of regadenoson given intravenously ove r 7-10 seconds. Stress Symptoms No chest pain or symptoms. POST EXERCISE Reason for Termination: Infusion complete Max HR: 92 bpm Max Blood Pressure: 160/71mmHg Blood Pressure response to exercise: Normal blood pressure response during stress. Heart Rate response to exercise: WNL Chest Pain: No. Arrhythmia: Yes. PVCs ST Change: No. INTERPRETATION Stress EKG Conclusion: Non-diagnostic EKG due to pacing artifact. Rest: Stress: Viability: Radiopharm.Tc99m RunowixqlWi43z Sestamibi Qimp73cTu 30.8mCi Duration 13min. 13min. Img Date 03/15/2019 03/15/2019 Inj-Img Kjwq93nop. 60min. Rest Admin Site:IV - Left AntecubitalAdministrator:RT Robbin Giron)(N) Stress Admin Site: IV - Left AntecubitalAdministrator: RT Robbin Aldridge)(N) STRESS DATA End Diast. Vol.70.0mlLVEDV index BSA38.0ml End Syst. Vol.15.0mlLVESV index BSA8.0ml Myocardial Taig133.0gEject. Pwfoovog86.0% Stress Scores Regional WT0.00Summed WT1.00 Regional WM0.00Summed WM0.00 The rest and stress images show normal perfusion, normal contraction and thickening. LV Perf. Quant 17 Seg. SSS1.00 17 Seg. SRS3.00 17 Seg. SDS0.00 Stress Defect Extent (% LAD)0.00Rest Defect Extent (% LAD)3.10Rev. Defect Extent (% LAD)0.00 Stress Defect Extent (% LCX) 16.30Rest Defect Extent (% LCX)18.80Rev. Defect Extent (% LCX)0.00 Stress Defect Extent (% RCA)0.00Rest Defect Extent (% RCA)2.20Rev. Defect Extent (% RCA)0.00 Stress Defect Extent (% BRADY)2.80Rest Defect Extent (% BRADY)8.00Rev. Defect Extent (% BRADY)0.00 Other Information Quality:Average Risk Assessment: Low Risk Conclusion 1. No evidence of EKG changes with stress testing. 2. Normal perfusion at stress/rest. 3. Low risk study. 4. EF > 60%. Signed by : Pan Moss, Electronically Approved : 03/15/2019 13:27:14
--- NOTE | 2019-03-15 13:32 | CARD ---
MR#: [id number] Date of Study: 03/15/2019 Ordering Physician: MELISSA LOFTON, Referring Physician: MELISSA LOFTON, Tech: Genny Morgan APPROVED REPORT EXAM: Two-dimensional and M-mode echocardiogram with Doppler and color Doppler. Other Information Quality : AverageHR: 101bpm Rhythm : Pacemaker INDICATION LV Function:Diastolic Chronic systolic heart failure Surgery/Intervention Pacemaker: Date: 5-8 years 2D DIMENSIONS RVDd3.2 (2.9-3.5cm)Left Atrium(2D)4.1 (1.6-4.0cm) IVSd1.1 (0.7-1.1cm)Aortic Root(2D)2.7 (2.0-3.7cm) LVDd4.5 (3.9-5.9cm)LVOT Diameter2.0 (1.8-2.4cm) PWd0.9 (0.7-1.1cm)LVDs2.9 (2.5-4.0cm) FS (%) 35.3 %SV61.1 ml Aortic Valve AoV Peak Dimitry.133.6cm/sAoV VTI30.4cm AO Peak GR.7.1mmHgLVOT Peak Dimitry.59.3cm/s LVOT VTI 13.13cmAO Mean GR.4mmHg STEPHENIE (VMAX)1.85xt2DDI (VTI)1.31cm2 Mitral Valve MV E Djjjcjpt153.8cm/sMV DECEL [id number] MV A Ipwdwusp01.4cm/sMV E Mean Gr.2mmHg MV HWN79kvC/A Ratio3.1 MVA (PHT)7.12cm2 TDI E/Medial E'16.3 Pulmonary Valve PV Peak Iliwegzc30.7cm/sPV Peak Grad.3mmHg Tricuspid Valve TR P. Bgihqxly447wr/sRAP CODUMHGE59lcOk TR Peak Gr.41mmHg LEFT VENTRICLE The left ventricle is normal size. There is borderline concentric left ventricular hypertrophy. The l eft ventricular systolic function is normal and the ejection fraction is within normal range. The Eje ction Fraction is 55-60%. Wall motion consistent with conduction abnormality. Transmitral Doppler elias w pattern is Grade I-abnormal relaxation pattern. RIGHT VENTRICLE The right ventricle is normal size. There is normal right ventricular wall thickness. The right ventr icular systolic function is normal. ATRIA The left atrium is moderately dilated. The right atrium is moderately dilated. Interatrial septum bow ed toward the right, consistent with elevated left atrial pressures. AORTIC VALVE The aortic valve is mildly to moderately thickened but opens well. Doppler and Color Flow revealed tr dustin aortic regurgitation. There is no significant aortic valvular stenosis. MITRAL VALVE The mitral valve is thickened but opens well. There is no evidence of mitral valve prolapse. There is no mitral valve stenosis. Doppler and Color-flow revealed trace to mild mitral regurgitation. TRICUSPID VALVE The tricuspid valve is normal in structure and function. Doppler and Color Flow revealed mild to mode rate tricuspid regurgitation with an estimated PAP of 56 mmHg. There is no tricuspid valve stenosis. PULMONIC VALVE The pulmonic valve is not well visualized. Doppler and Color Flow revealed mild pulmonic valvular reg urgitation. GREAT VESSELS The aortic root is normal in size. The IVC is dilated and collapses <50% with inspiration. PERICARDIAL EFFUSION There is no evidence of significant pericardial effusion. Critical Notification Critical Value: No <Conclusion> The left ventricle is normal size. The left ventricular systolic function is normal and the ejection fraction is within normal range. The Ejection Fraction is 55-60%. There is borderline concentric left ventricular hypertrophy. The left atrium is moderately dilated. The right atrium is moderately dilated. Doppler and Color Flow revealed trace aortic regurgitation. There is no significant aortic valvular stenosis. Doppler and Color-flow revealed trace to mild mitral regurgitation. Doppler and Color Flow revealed mild to moderate tricuspid regurgitation with an estimated PAP of 56 mmHg. Signed by : Gilberto Rosales MD Electronically Approved : 03/15/2019 13:31:56
== END ==
LOC: NM 08:48
PROVIDERS: ATTEND Internal Medicine Cardiovascular Disease
DX: I08.8 Other rheumatic multiple valve diseases (principal); I25.10 Atherosclerotic heart disease of native coronary artery without angina pectoris; I11.0 Hypertensive heart disease with heart failure; I50.22 Chronic systolic (congestive) heart failure; Z79.01 Long term (current) use of anticoagulants
CPT/HCPCS: 78452; 93017; 93306; A9500; J2785

== ENCOUNTER → 2020-03-10 | Outpatient (CLI) | payer MEDICARE ==
[~2020-03-10] MED LIST changes: +ASCO100019 PO; -ASCO10002 PO; -REGADENOSON 0.4 MG/5 ML DISP.SYRIN. IV ONE
--- NOTE | 2020-03-10 14:40 | CARD ---
MR#: [id number] Date of Study: 03/10/2020 Ordering Physician: MELISSA LOFTON, Referring Physician: MELISSA LOFTON Tech: Dayanara Wu ROYER APPROVED REPORT EXAM: Two-dimensional and M-mode echocardiogram with Doppler and color Doppler. Other Information Technically limited study due to body habitus. INDICATION Pacemaker. Hx: SSS. 2D DIMENSIONS RVDd4.3 (2.9-3.5cm)IVSd1.0 (0.7-1.1cm) Aortic Root(2D)2.9 (2.0-3.7cm)LVDd4.3 (3.9-5.9cm) LVOT Diameter2.0 (1.8-2.4cm)PWd1.0 (0.7-1.1cm) LVDs3.2 (2.5-4.0cm)FS (%) 26.0 % SV42.5 mlLVEF(%)51.3 (>50%) Aortic Valve AoV Peak Dimitry.106.0cm/Olman Peak GR.4.5mmHg LVOT Peak Dimitry.66.6cm/sAVA (VMAX)1.91cm2 Pulmonary Valve PV Peak Rdyjjpnh45.9cm/s Tricuspid Valve TR P. Dgcpvmgj687kr/sRAP HMSSECHC85zgRp TR Peak Gr.24pnLdMRVV02wwUq LEFT VENTRICLE The left ventricle is normal size. There is normal left ventricular wall thickness. Left ventricle sy stolic function is mildly decreased. EF 45% Paradoxical septal motion consistent with paced rhythm. O therwise, mild global hypokinesis. Tissue Doppler imaging reveals moderate left ventricular diastolic dysfunction. RIGHT VENTRICLE The right ventricle is mildly dilated. The right ventricular systolic function is normal. There is a pacemaker lead noted in the RA/RV ATRIA Severe biatrial enlargement. A pacemaker is seen in the right atrium. The interatrial septum is intac t with no evidence for an atrial septal defect or patent foramen ovale as noted on 2-D or Doppler dafne ging. AORTIC VALVE The aortic valve is normal in structure and function. Leaflets are mildly calcified. Doppler and [place] r Flow revealed no significant aortic regurgitation. There is no significant aortic valvular stenosis . MITRAL VALVE The mitral valve is normal in structure. Mildly thickened leaflets. Mild mitral annular calcification . There is no mitral valve stenosis. Mild to moderate mitral regurgitation. TRICUSPID VALVE Severe tricuspid regurgitation. The PA pressure was estimated at 45-50 mmHg. PULMONIC VALVE Mild pulmonic valvular regurgitation. There is no pulmonic valvular stenosis. GREAT VESSELS The aortic root is normal in size. The ascending aorta is normal in size. The IVC is dilated and teddy apses >50% with inspiration. PERICARDIAL EFFUSION There is no evidence of significant pericardial effusion. Critical Notification Critical Value: No <Conclusion> Left ventricle systolic function is mildly decreased. EF 45% Paradoxical septal motion consistent with paced rhythm. Otherwise, mild global hypokinesis. Severe biatrial enlargement. There is a pacemaker lead noted in the RA/RV Severe tricuspid regurgitation. The PA pressure was estimated at 45-50 mmHg. Signed by : Pan Moss, Electronically Approved : 03/10/2020 14:39:41
== END ==
LOC: ECHO 13:34
PROVIDERS: ATTEND Internal Medicine Cardiovascular Disease
DX: I08.8 Other rheumatic multiple valve diseases (principal); I49.5 Sick sinus syndrome; Z95.0 Presence of cardiac pacemaker
CPT/HCPCS: 93306

== ENCOUNTER → 2021-05-06 | Outpatient (CLI) | payer MEDICARE ==
[~2021-05-06] MED LIST changes: +MAGN400T48 PO; -MAGN400T5 PO
--- NOTE | 2021-05-06 17:14 | CARD ---
MR#: [id number] Date of Study: 05/06/2021 Ordering Physician: MELISSA LOFTON, Referring Physician: MELISSA LOFTON Tech: Cinthya Travis [facility] APPROVED REPORT EXAM: Two-dimensional and M-mode echocardiogram with Doppler and color Doppler. Other Information Quality : Technically LimitedHR: 77bpm Rhythm : NSR INDICATION Dyspnea RISK FACTORS Hypertension Obesity Hyperlipidemia 2D DIMENSIONS Left Atrium(2D)6.1 (1.6-4.0cm)IVSd1.1 (0.7-1.1cm) Aortic Root(2D)3.0 (2.0-3.7cm)LVDd4.3 (3.9-5.9cm) LVOT Diameter2.2 (1.8-2.4cm)PWd1.0 (0.7-1.1cm) LVDs2.6 (2.5-4.0cm)FS (%) 39.9 % SV57.7 mlLVEF(%)70.8 (>50%) Aortic Valve AoV Peak Dimitry.138.6cm/sAoV VTI27.6cm AO Peak GR.7.7mmHgLVOT Peak Dimitry.66.8cm/s AO Mean GR.4mmHgAVA (VMAX)1.79cm2 Mitral Valve MV E Hvabaebf762.2cm/sMV DECEL UQWG166ot MV A Fhauqtdz78.6cm/sE/A Ratio2.4 Tricuspid Valve TR P. Dsmkqfgg946tl/sTR Peak Gr.55mmHg LEFT VENTRICLE The left ventricle is normal size. There is mild concentric left ventricular hypertrophy. The left ve ntricular systolic function is normal and the ejection fraction is within normal range. EF 55% Septal motion suggestive of conduction defect. Grossly normal wall motion. Transmitral Doppler flow pattern is Grade I-abnormal relaxation pattern. RIGHT VENTRICLE The right ventricle is normal size. There is normal right ventricular wall thickness. The right ventr icular systolic function is normal. ATRIA The left atrium is severely dilated. The right atrium is severely dilated. The interatrial septum is intact with no evidence for an atrial septal defect or patent foramen ovale as noted on 2-D or Dopple r imaging. AORTIC VALVE The aortic valve is normal in structure and function. Doppler and Color Flow revealed no significant aortic regurgitation. There is no significant aortic valvular stenosis. MITRAL VALVE The mitral valve is normal in structure and function. There is no evidence of mitral valve prolapse. There is no mitral valve stenosis. Doppler and Color-flow revealed mild to moderate mitral regurgitat ion. TRICUSPID VALVE The tricuspid valve is normal in structure and function. Doppler and Color Flow revealed moderate to severe tricuspid regurgitation. Estimated PAP 55 mmHg. There is no tricuspid valve stenosis. PULMONIC VALVE The pulmonary valve is normal in structure and function. Doppler and Color Flow revealed mild to mode rate pulmonic valvular regurgitation. There is no pulmonic valvular stenosis. GREAT VESSELS The aortic root is normal in size. The ascending aorta is normal in size. The IVC is normal in size a nd collapses >50% with inspiration. PERICARDIAL EFFUSION There is no evidence of significant pericardial effusion. Critical Notification Critical Value: No <Conclusion> The left ventricular systolic function is normal and the ejection fraction is within normal range. EF 55% Septal motion suggestive of conduction defect. Grossly normal wall motion. Doppler and Color-flow revealed mild to moderate mitral regurgitation. Doppler and Color Flow revealed moderate to severe tricuspid regurgitation. Estimated PAP 55 mmHg. Doppler and Color Flow revealed mild to moderate pulmonic valvular regurgitation. Consider infiltrative cardiomyopathy given severe biatrial enlargement versus age-related changes. Signed by : Pan Moss, Electronically Approved : 05/06/2021 17:14:16
== END ==
LOC: ECHO 12:38
PROVIDERS: ATTEND Internal Medicine Cardiovascular Disease
DX: I08.8 Other rheumatic multiple valve diseases (principal); I50.22 Chronic systolic (congestive) heart failure; R06.00 Dyspnea, unspecified
CPT/HCPCS: 93306; C8929